=== PATIENT | male | born 1945 | race Caucasian/White ===

== ENCOUNTER 2017-03-22 09:56 | Outpatient (CLI) | payer OTHER ==
--- NOTE | 2017-03-22 12:52 | CT ---
CT CHEST WITH IV CONTRAST CT ABDOMEN WITH IV CONTRAST: Date: 03/22/17 HISTORY: Lung cancer. Patient on chemotherapy. COMPARISON: 02/12/17. FINDINGS: Bilateral supraclavicular lymphadenopathy is seen. The right hilar/suprahilar mass extending into th e right paratracheal mediastinum measures 6.6 x 4.6 x 12.3 cm. Other mediastinal lymph nodes show in terval increase in size with the subcarinal lymph nodes measuring about 16.0 mm. There has been inte rval increase in size of the pericardial effusion. A moderate sized right pleural effusion is presen t, increased in size since the last exam. The tiny peripheral nodule in the left upper lobe is stabl e. No new parenchymal nodules are seen. Numerous lesions are again noted in the liver with interval increase in size, largest lesion measuri ng about 2.9 cm. The spleen, pancreas, adrenal glands, and kidneys are unremarkable. No calcified ga llstones are noted. No free air or free fluid is seen in the abdomen. There has been interval develo pment of periportal lymphadenopathy with the portocaval lymph node measuring 18.0 mm. There are new prominent aortocaval lymph nodes measuring about 9.0 mm. The right pericardiac lymphadenopathy measures 3.5 cm and is enlarged. There are degenerative changes in the spine. No osteolytic or osteoblastic lesions are noted. IMPRESSION: Interval worsening since 02/12/17. POS: [facility]
[2017-03-22] MEDS ORDERED: Iopamidol 370 76% 100 ML VIAL ONE (16:00)
== END 2017-03-22 09:57 | disposition home or self-care (01) ==
LOC: CT 09:56
PROVIDERS: ATTEND Internal Medicine Medical Oncology
DX: C34.90 Malignant neoplasm of unspecified part of unspecified bronchus or lung (principal); C78.7 Secondary malignant neoplasm of liver and intrahepatic bile duct; C77.9 Secondary and unspecified malignant neoplasm of lymph node, unspecified
CPT/HCPCS: 71260; 74160

== ENCOUNTER → 2017-03-25 | Day surgery (SDC) | payer OTHER ==
[2017-03-25 12:55] LABS: BF Reference Range Comment Note:
[2017-03-25 13:34] LABS: BF Color Red; RBC Count-Automated 36000 /cumm
[2017-03-25 14:03] LABS: Number Cells Counted-Fluids 100
--- NOTE | 2017-03-25 17:14 | RAD ---
RADIOGRAPH CHEST 1 VIEW: Date: 03/25/2017 Time: 12:51 p.m. HISTORY: A 71-year-old male with right lung cancer. Status post thoracentesis. COMPARISON: There are no prior plain chest radiographs for comparison. There is a recent chest CT of 03/22/2017 . FINDINGS: The large volume of the right pleural effusion is only appreciated on the axial CT images and is muc h more difficult to appreciate on the athletic scout scanogram image for that CT, in which the pleural effusi on appears much smaller. Compared to that athletic scout image, the blunting of the right lateral costophren ic angle has now mildly decreased on the current study. No pneumothorax is visualized. Again noted is the right hilar and right paramediastinal, moderately large malignant neoplastic tumor mass. Ag ain demonstrated is the subsegmental atelectasis in the anterior segment of the right upper lobe, ab utting portions of the right major and minor fissures. No cardiomegaly. No pulmonary edema. Mild ai r space density has developed at the right medial lung base. IMPRESSION: 1. No pneumothorax. 2. Interval decrease in volume of right pleural effusion. 3. Right parahilar and paramediastinal lung cancer tumor mass. MARIAM [] POS: [facility]
--- NOTE | 2017-03-25 20:49 | OP ---
DATE OF SERVICE: 03/25/2017 INDICATIONS: Mr. Ball was referred by Dr. Winn with pleural effusion. He was symptomatically s hort of breath. CT was reviewed, which showed a large right pleural effusion. PROCEDURE IN DETAIL: After informed consent, the right posterior thorax was cleaned with chlorhexid ine. Lidocaine 1% was infiltrated in the right ninth intercostal space and the pleural cavity was e ntered, and about 20 mL of sanguinous fluid were removed. Thereafter, using an 8-Slovak catheter, a total of 1500 mL was removed without any difficulty. Pleural effusion sent for various studies inc luding cytology and culture. The patient tolerated the procedure well.
--- NOTE | 2017-03-25 20:52 | HP ---
HISTORY OF PRESENT ILLNESS: A 71-year-old gentleman with a history of small cell cancer being follo wed by Dr. Winn. CT showed multiple mets with liver involvement. He additionally has left arm phlebitis. Right pleural effusion seen on recent CT. He is having symptoms of cough and shortness of breath. He is denying any chest pain. PAST MEDICAL HISTORY: Outlined before pertinent for his asthma and high cholesterol. PREVIOUS SURGERIES: Knee, neck, and back surgery. SOCIAL AND FAMILY HISTORY: He is a former smoker. REVIEW OF SYSTEMS: Otherwise unremarkable. HOME MEDICATIONS: Include nose spray, vitamin, ibuprofen, several different nasal sprays. ALLERGIES: None. REVIEW OF SYSTEMS: Negative. PHYSICAL EXAMINATION: GENERAL: He appears to be in no acute distress. VITAL SIGNS: Sats are 98%, blood pressure 120/80, respirations 18, pulse 80. CHEST: Chest revealed decreased breath sounds in the right lower one-third, left lung unremarkable. CARDIAC: Normal S1 and S2. Regular. ABDOMEN: Soft. No masses. IMPRESSION: Metastatic pleural effusion, symptomatic in a former smoker. PLAN: Thoracentesis is performed. Further recommendations as above.
[2017-03-27 16:15] LABS: Fungus Smear Status Final report (.)
--- NOTE | 2017-03-30 00:54 | CON ---
DATE OF CONSULTATION: 03/29/2017 Janina Ball is a 71-year-old gentleman who is well known to me, underwent a thoracentesis on Saturday, 4 days ago for dyspnea about 1400 mL to 1500 mL of fluid was removed, which showed small cell cancer . He came back last night with marked orthopnea, PND, and shortness of breath. X-ray shows recurrence of his significant right pleural effusion. In addition, he has extensive met astatic small cell cancer. PAST MEDICAL HISTORY: Asthma, high cholesterol, small cell cancer. he takes Xarelto for what sound s like cardiac issues. PREVIOUS SURGERIES: Orthopedic surgery, back, neck and knee thoracentesis. MEDICINE FROM HOME: Amlodipine 10, Xarelto, vitamin, ibuprofen. REVIEW OF SYSTEMS: Negative. PHYSICAL EXAMINATION: VITAL SIGNS: Blood pressure is 140/70, on 2 liters, temperature is 98. CHEST: Decreased breath sounds in the right lung; the left lung is unremarkable. CARDIAC: Normal S1, S2. No gallops. ABDOMEN: Soft. No masses. LABORATORY DATA: His electrolytes are normal. His CBC is unremarkable. BNP is normal. IMPRESSION: 1. Recurrent metastatic small cell cancer with significant dyspnea. 2. Long-term Xarelto. 3. Former smoker. PLAN: Rapid fluid. I have discussed with CV Surgery. Dr. Villa is going to try to insert a pleural catheter to relieve his dyspnea. Further recommendations after above. In the meantime, we will hold his Xarelto.
--- OUTSIDE RECORDS SUMMARY | 2017-04-01 04:44 | XMS | Clinical Summary ---
:1945 Author Organization [facility] Address [address] [place] [phone] Phone Care Team Providers Name Role Phone , Primary Care Provider Unavailable Allergies Not on File Current Medications Not on file Active Problems Not on file Social History Tobacco Use Types Packs/Day Years Used Date Never Assessed Sex Assigned at Date Recorded Not on file Last Filed Vital Signs Not on file Plan of Treatment Not on file Results Not on filefrom Last 3 Months
== END ==
LOC: SDC 11:32
PROVIDERS: ATTEND Internal Medicine Pulmonary Disease
PROC: 0W993ZZ Drainage of Right Pleural Cavity, Percutaneous Approach (ICD-10-PCS; principal; 2017-03-25)
DX: C34.91 Malignant neoplasm of unspecified part of right bronchus or lung (principal); J90 Pleural effusion, not elsewhere classified; J45.909 Unspecified asthma, uncomplicated; E78.00 Pure hypercholesterolemia, unspecified; Z79.1 Long term (current) use of non-steroidal anti-inflammatories (NSAID); Z79.899 Other long term (current) drug therapy; Z87.891 Personal history of nicotine dependence
CPT/HCPCS: 32554; 71010; 80053; 82150; 82248; 82945; 83615; 83986; 84100; 84157; 84478; 84550; 85060; 87070; 87116; 87205; 87206; 88112; 88305; 88341; 88342; 89051; J1642

== ENCOUNTER 2017-03-28 16:16 | Inpatient (IN) | payer MEDICARE, OTHER ==
--- NOTE | 2017-03-28 17:16 | RAD ---
SINGLE VIEW OF THE CHEST: COMPARISON: 03/25/17. HISTORY: Dyspnea. FINDINGS: A single view of the chest shows a normal-size cardiomediastinal silhouette. There is a moderate ri ght pleural effusion. No left pleural effusion is seen. Degenerative changes are seen in the spine . IMPRESSION: Moderate right pleural effusion. POS: [facility]
[2017-03-28 17:44] LABS: Lactic Acid - Sepsis 2.6 mmol/L (0.5-2.2)
[2017-03-28 17:54] LABS: Troponin I 0.016 ng/mL (< 0.028)
[2017-03-28 18:06] LABS: #Eosinphils 0.1 thou/uL (0.0-0.7); #Lymphocytes 1.1 thou/uL (1.20-3.40); #Monocytes 1.1 thou/uL (0.11-0.59); %Basophils 0.2 % (0.0-1.0); %Eosinophils 0.7 % (0.0-10.0); %Lymphocytes 9.2 % (21.0-51.0); %Monocytes 8.7 % (0.0-10.0); Hematocrit 31.9 % (42.0-52.0); Mean Platelet Volume 7.1 fL (7.4-10.4); Red Blood Cell (RBC) Count 2.83 mill/uL (4.70-6.10); White Blood Cell (WBC) Count 12.3 thou/uL (4.8-10.8)
[2017-03-28 18:20] LABS: Anisocytosis SLIGHT = 6-15 cells (100X) (0-5/hpf); Macrocytosis MODERATE=16-30 cells (100X) (0-5/hpf); Ovalocytes SLIGHT = 2-5 cells (100X) (0-1/hpf); Polychromasia MODERATE = 3-4 cells (100X) (0-2/hpf); Schistocytes SLIGHT = 2-5 cells (100X) (0-1/hpf)
[2017-03-28 18:29] LABS: Bilirubin Small (Negative); Blood, Urine Negative (Negative); Glucose, Urine (Dipstick) Negative (Negative); Ketone, Urine Negative (Negative); Nitrite Negative (Negative); Protein, Urine (Dipstick) Trace mg/dL (Neg-Trace)
[2017-03-28 18:51] LABS: Calcium 10.7 mg/dL (7.8-10.44); Chloride 103 mmol/L (98-107); Magnesium 1.5 mg/dL (1.6-2.6)
[2017-03-28 18:52] LABS: Globulin 3.4 g/dL (2.4-3.5); Protein, Total 6.9 g/dL (5.8-8.1)
[2017-03-28 18:54] LABS: Anion Gap 12 mmol/L (10-20); Bilirubin, Total 0.4 mg/dL (0.2-1.2); Carbon Dioxide 27 mmol/L (23-31)
[2017-03-28 18:55] LABS: Alkaline Phosphatase 155 U/L (40-150)
[2017-03-28 18:56] LABS: BUN (Urea Nitrogen) 15 mg/dL (8.4-25.7); Calc. Creatinine Clearance 0 mL/min (70-130); Estimated GFR-MDRD 84
[2017-03-28 18:57] LABS: AST (SGOT) 93 U/L (5-34)
[2017-03-28 18:58] LABS: ALT (SGPT) 88 U/L (8-55)
[2017-03-28] MEDS ORDERED: Acetaminophen 325 MG TAB PO PRN ×2 (22:30→22:42)
[2017-03-28] MEDS ORDERED: Furosemide 20 MG/2 ML VIAL SLOW IVP SCH (22:42)
[2017-03-28] MEDS ORDERED: Ondansetron ODT 4 MG TAB PO PRN (22:42)
[2017-03-28] MEDS ORDERED: Potassium Chloride 20 MEQ TAB PO SCH (22:45)
[2017-03-28 23:48] VITALS: BMI 29.4
[2017-03-29] MEDS: Guaifenesin DM 100-10/5 ML UDCUP PO PRN ×5 (00:08→19:55)
[2017-03-29] MEDS ORDERED: guaiFENesin/Dextromethorphan 10 ML UDCUP PO PRN (03:29)
[2017-03-29 04:34] LABS: #Eosinphils 0.1 thou/uL (0.0-0.7); #Lymphocytes 1.1 thou/uL (1.20-3.40); #Monocytes 1.2 thou/uL (0.11-0.59); #Neutrophils 9.7 thou/uL (1.40-6.50); %Basophils 0.1 % (0.0-1.0); %Eosinophils 0.5 % (0.0-10.0); %Lymphocytes 9.1 % (21.0-51.0); %Monocytes 9.7 % (0.0-10.0); Hematocrit 30.3 % (42.0-52.0); Mean Platelet Volume 6.4 fL (7.4-10.4)
[2017-03-29 05:01] LABS: Calcium 9.9 mg/dL (7.8-10.44); Chloride 106 mmol/L (98-107)
[2017-03-29 05:23] LABS: BUN (Urea Nitrogen) 13 mg/dL (8.4-25.7); Calc. Creatinine Clearance 116 mL/min (70-130); Carbon Dioxide 17 mmol/L (23-31); Estimated GFR-MDRD Greater than 90
[2017-03-29 05:26] LABS: Anion Gap 17 mmol/L (10-20)
--- NOTE | 2017-03-29 06:09 | PDOC.FM ---
- Subjective Subjective: Mr. Ball states he does not feel too great this morning, but he says he thinks its due to him not eating much yesterday or last night. He still has dyspnea when he is moving or talking but is otherwise feeling fine. He denies chest pain, fever, chills, n/v/d. - Objective MAR Reviewed: Yes Vital Signs & Weight: Vital Signs (12 hours) Temp Pulse Resp BP BP Pulse Ox 03/29/17 04:24 98.6 F 96 20 120/69 98 03/29/17 00:53 98.9 F 97 24 H 145/69 H 99 03/28/17 22:25 98.9 F 97 24 H 144/69 H 99 Weight Weight 93 kg Result Diagrams: 03/29/17 03:49 03/29/17 03:49 Radiology Reviewed by me: Yes <Abhilash Billingsley - Last Filed: 03/29/17 08:55> - Objective Vital Signs & Weight: Vital Signs (12 hours) Temp Pulse Resp BP BP Pulse Ox 03/29/17 09:04 95 03/29/17 08:00 98.4 F 97 18 03/29/17 07:26 98.4 F 97 18 148/70 H 92 L 03/29/17 04:24 98.6 F 96 20 120/69 98 03/29/17 00:53 98.9 F 97 24 H 145/69 H 99 Weight Weight 205 lb 0.478 oz Result Diagrams: 03/29/17 03:49 03/29/17 03:49 <Azar Quick - Last Filed: 03/29/17 11:07> Phys Exam - Physical Examination Constitutional: NAD HEENT: moist MMs, sclera anicteric Neck: supple, full ROM Respiratory: no rales, no rhonchi decreased breath sounds on the right Cardiovascular: RRR, no significant murmur, no rub Gastrointestinal: soft, non-tender Musculoskeletal: no edema Neurological: non-focal, moves all 4 limbs Psychiatric: normal affect, A&O x 3 <Abhilash Billingsley - Last Filed: 03/29/17 08:55> Dx/Plan (1) Pleural effusion, right Code(s): J90 - PLEURAL EFFUSION, NOT ELSEWHERE CLASSIFIED Status: Acute Plan: Thoracentensis on 03/[address] Palma -will consult Pulmonology and heme/onc today. -effusion 2/2 small cell lung cancer -pain control, 02 supplementation (2) Small cell lung cancer Code(s): C34.90 - MALIGNANT NEOPLASM OF UNSP PART OF UNSP BRONCHUS OR LUNG Status: Acute Plan: Consult heme/onc -request records (3) Hypertension Code(s): I10 - ESSENTIAL (PRIMARY) HYPERTENSION Status: Acute Plan: Continue home meds and monitoring BPs ranging from 120-145/69 (4) Leukocytosis Code(s): D72.829 - ELEVATED WHITE BLOOD CELL COUNT, UNSPECIFIED Status: Acute Plan: continue to trend CBCs -blood cultures pending (5) Transaminitis Code(s): R74.0 - NONSPEC ELEV OF LEVELS OF TRANSAMNS & LACTIC ACID DEHYDRGNSE Status: Acute Plan: 2/2 to metastasis to liver -continue to follow (6) Macrocytic anemia Code(s): D53.9 - NUTRITIONAL ANEMIA, UNSPECIFIED Status: Acute Plan: checking RBC folate and B12 <Abhilash Billingsley - Last Filed: 03/29/17 08:55> Attending Addendum - Attending Addendum I personally evaluated the patient and discussed the management with Dr. Billingsley I agree with the History, Examination, Assessment and Plan documented above with any addition or exceptions noted below. Difficult situation. Stage IV lung cancer with recurrent pleural effusion and Dyspnea. We are asking pulmonary to see him. He may need a drain. I think he might do better on Morphine which will help with the dyspnea. <Azar Quick - Last Filed: 03/29/17 11:07>
--- NOTE | 2017-03-29 07:03 | HP-2 ---
CODE STATUS: FULL. PRIMARY CARE PHYSICIAN: [facility] call. ATTENDING: Dacia Infante MD PGY-1: Dr. Michel Solis. SPECIALIST: Chapis Winn MD, Oncology. CHIEF COMPLAINT: Shortness of breath. 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 He states he has been coughing more and working harder to breathe just like before his thoracentesis pr eviously. He states he has some chest wall pain from coughing. The symptoms get better when he kohler s not talk and when he lies down. He states he gets worse when he tries to do too much. PAST MEDICAL HISTORY: Significant for hypertension; small cell lung cancer diagnosed in October 2016, s tage IV. PAST SURGICAL HISTORY: He has had a neck surgery, a back surgery, and a knee surgery. ALLERGIES: No known drug allergies. MEDICATIONS: Xarelto and antihypertensive that he did not know the name of. FAMILY HISTORY: Noncontributory. SOCIAL HISTORY: He still is currently using chewing tobacco and he states that he has a 20-pack-yea r smoking history, but he quit in October of this year. He denies any alcohol or drug use. REVIEW OF SYSTEMS: General: He denies any fevers or chills, denies any weight changes. He fluctua charly between 205 pounds and 210 pounds. Denies any night sweats. He does admit to some fatigue. Ey es: Denies any vision change or eye pain. ENT: Denies any nasal congestion, rhinorrhea or sore th roat. Respiratory: He admits to cough. No congestion. He does admit to shortness of breath. Car diovascular: He denies any chest pain, palpitations, edema or orthopnea. Gastrointestinal: He kohler s admit to nausea. He denies vomiting, diarrhea, constipation, abdominal pain, GI bleeding. Genito urinary: He denies incontinence or dysuria. Skin: He does admit to a lesion on the sole of his ri ght foot. Denies any rashes or jaundice. Musculoskeletal: He denies any pain, tenderness, stiffne ss, swelling to any joints. Neurologic: He does admit to weakness and also numbness in his right h and from a previous shoulder injury. Psychiatric: He denies anxiety or depression. PHYSICAL EXAMINATION: VITAL SIGNS: Blood pressure was 148/63, pulse was 106, respiratory rate 30, temperature max was 98. 3, pulse ox 100% on 2 L. He was also as low as 96% on room air. His current weight is 93 kilos. GENERAL: He is alert and oriented x4. He is appropriately interactive. EYES: PERRLA. Conjunctivae within normal limits. ENT: Nasal mucosa and oropharynx within normal limits. NECK: Supple, without lymphadenopathy, without thyromegaly. CARDIOVASCULAR: Regular rate and rhythm. No murmur, no gallops. Radial and pedal pulses were equa l bilaterally. RESPIRATORY: He had labored breathing. No retractions. His left lung field was clear to auscultat ions. His right lung field was clear until about a third [address] down and he had absent lung luzma nds at his right lung base. SKIN: Warm and dry. He did have looked like a stage I pressure ulcer on the sole of his right foot . ABDOMEN: Soft, nontender to palpation. Bowel sounds were present x4. No mass or distention. EXTREMITIES: No clubbing, cyanosis or edema. MUSCULOSKELETAL: Structure, tone. Muscle strength and range of motion within normal limits. NEUROLOGIC: No focal neurologic deficits. Cranial nerves II-XII are grossly intact. GCS is 15. PSYCHIATRIC: Appropriate. LABORATORY DATA: He had a white blood cell count 12.3, a platelet count of 235, hemoglobin of 10.4, hematocrit 31.9, MCV was 113, percent neutrophils is 81.2. Sodium was 139, potassium 3.1, chloride 103, bicarbonate 27, BUN 15, creatinine 0.89, glucose was 118, calcium was 10.7, total protein 6.9, albumin was 3.5, total bilirubin 0.4, AST was 93, ALT was 88, alkaline phosphatase was 155. PT was 16, INR was 1.3, PTT was 34. Lactate was 2.6. Magnesium was 1.5. CK-MB was 2.9. Troponin I was 0.016. BNP was 46.3. A urinalysis did not show any evidence of infection. His EKG showed normal s inus rhythm, possible left atrial enlargement. He had Q-waves in V4, V5, and V6. His chest x-ray s howed a moderate right pleural effusion. He had a chest x-ray on 03/25/2017 after a thoracentesis t hat did not show any effusion present. ASSESSMENT AND PLAN: This is a 71-year-old male with past medical history, who presents with: 1. Right-sided pleural effusion, likely secondary to his lung cancer. We will consult pulmonary an d hematology. We are going to give him one dose of IV Lasix. We will give pain control if needed a nd O2 supplementation if needed. He will need a thoracentesis from pulmonology during that consulta tion. 2. Small cell lung cancer. We will consult his oncologist and request records. 3. Transaminitis. We will check his AST and ALT. He will likely need outpatient followup from [facility]. 4. Leukocytosis. We will check his CBC and we did get blood cultures. 5. Hypertension. Continue his home meds. 6. Hypercalcemia, likely secondary to his small cell lung cancer. 7. Macrocytic anemia. Will get an RBC, folate and B12, but it likely is from his tobacco abuse. 8. Disposition and length of hospital stay will be inpatient and 2 midnights. Symptomatic medicati ons will be provided. History and physical exam as well as management have been discussed with Dr. Infante.
[2017-03-29] MEDS: Multivitamin W/ Minerals 1 TAB PO SCH (08:16)
[2017-03-29] MEDS: Famotidine 20 MG TAB PO SCH ×2 (08:16→19:56)
[2017-03-29] MEDS: Ibuprofen 200 MG TAB PO SCH ×2 (08:16→19:56)
[2017-03-29] MEDS: Potassium Chloride 8 MEQ TAB PO SCH (08:29)
[2017-03-29] MEDS ORDERED: FLU VACC TS2017-18 (>65YR) 0.5 ML SYRINGE IM ONE (09:00)
[2017-03-29] MEDS ORDERED: Rivaroxaban 10 MG TAB PO SCH (09:00)
--- NOTE | 2017-03-29 11:04 | CON ---
DATE OF CONSULTATION: 03/29/2017 REASON FOR CONSULTATION: Lung cancer. HISTORY OF PRESENT ILLNESS: Mr. Ball is a 71-year-old gentleman who was diagnosed with small cell c arcinoma of the lung with multiple metastases including the liver in 11/2016. He had a right pleura l effusion at diagnosis. He began treatment with carboplatin and UPPER CASER-16. However, in February, he began to progress. He wanted to pursue aggressive treatment, so he was referred to [facility] mcneil recommended a second line immunotherapy with Opdivo. He is due to start next week; however[facility], he presented with shortness of breath. Dr. Palma performed a right thoracentesis. He then returned to our clinic yesterday with shortness of breath and his O2 saturation was 82% on room air. He was sent to the emergency room for treatment and admitted. Chest x-ray shows a moderate r ight pleural effusion. Dr. Palma has seen the patient and has recommended a PleurX catheter. PAST MEDICAL HISTORY: 1. Metastatic small cell lung cancer. 2. High cholesterol. 3. Asthma. PAST SURGICAL HISTORY: 1. Thoracentesis. 2. Knee surgery. 3. Neck and back surgery. ALLERGIES: No known drug allergies. HOME MEDICATIONS: 1. Morphine 30 mg immediate release 1-2 q.3h. p.r.n. 2. Zoloft 25 mg daily. FAMILY HISTORY: Noncontributory. SOCIAL HISTORY: , has 1 child. Lives alone. Former alcohol consumption. Current every da y smokeless tobacco dipping. REVIEW OF SYSTEMS: CONSTITUTIONAL: No fever, chills, night sweats. EYES: No blurred or double vision. ENT: No pain, hoarseness, sore throat, or dysphagia. CARDIOVASCULAR: No chest pain, palpitations or syncope. RESPIRATORY: Positive shortness breath, dyspnea on exertion and cough. GASTROINTESTINAL: No nausea, vomiting, diarrhea, constipation or abdominal pain. GENITOURINARY: No dysuria or hematuria. MUSCULOSKELETAL: No joint or back pain. SKIN: No rash or pruritus. NEUROLOGIC: No weakness, headache, numbness, tingling or seizure activity. PSYCHIATRIC: No anxiety or depression. PHYSICAL EXAMINATION: VITAL SIGNS: Temperature is 98.4, pulse is 97, respiratory rate 18, BP is 148/70, O2 is 95% on 2 li ters. GENERAL: Disheveled male in no acute distress. HEENT: Normocephalic, atraumatic. Pupils equal and reactive to light. NECK: Supple. CARDIOVASCULAR: Regular rate and rhythm. LUNGS: Diminished at the right base. ABDOMEN: Soft, nontender, bowel sounds are positive. EXTREMITIES: No clubbing, cyanosis or edema. SKIN: No rash. LYMPH: He has right supraclavicular lymphadenopathy. NEUROLOGICAL: Nonfocal. PSYCHIATRIC: The patient is alert and oriented and appropriate. PERTINENT LABORATORY AND X-RAYS: Current WBCs are 12, hemoglobin 9.8, hematocrit 10.3, platelet cou nt 223,000, 81% neutrophils, 10% lymphocytes. PT is 69, INR 1.3, PTT 34. Sodium 135, potassium 3.6 , chloride 106, CO2 17, BUN is 13, creatinine 0.77, calcium 9.9, magnesium 1.5, total bilirubin is 0 .4, AST is 93, ALT 8, alkaline phosphatase is 155. Serum total protein is 6.9, albumin 3.5, globuli n 3.4. Urine was negative for bacteria. Radiology per HPI. IMPRESSION: 1. Metastatic small cell lung cancer. 2. Moderate pleural effusion. DISCUSSION: Cardiothoracic Surgery has been consulted for a PleurX catheter placement. The patient had recent progression on CT scan and is due to start immunotherapy next week. He adamantly declin es hospice and wishes to proceed forward with aggressive treatment. He does agree to palliative car e at home and will have upper caser work on setting that up. We were attempting to get home O2 for him earlier this week. We will hopefully get that settled while he is here so he can go home and h ave that in place. Thank you for the consult. We will follow him closely.
--- NOTE | 2017-03-29 11:31 | CON ---
DATE OF CONSULTATION: 03/29/2017 REASON FOR CONSULTATION: Evaluation for right PleurX catheter placement. PERTINENT HISTORY: The patient is a 71-year-old male with widely metastatic right small cell lung cancer. Four days ago he underwent right thoracentesis for a malignant pleural effusion retrieving 1500 mL of fluid. He was admitted last evening with shortness of breath. Chest x-ray revealed a moderate recurrence of the right pleural effusion. He was subsequently referred for PleurX catheter placement. PAST MEDICAL HISTORY: 1. Hypertension. 2. Dyslipidemia. 3. Left upper extremity phlebitis for which he has been placed on Xarelto. PAST SURGICAL HISTORY: Operations performed on his back, neck, and left knee. ALLERGIES: None. SOCIAL HISTORY: Former smoker, having quit in October of this year. Currently uses chewing tobacco. FAMILY HISTORY: Noncontributory. REVIEW OF SYSTEMS: No history of diabetes, kidney or liver disease, heart disease, or stroke. LABORATORY AND X-RAY FINDINGS: Hemoglobin 9.8. Platelet count 223,000. INR 1.3. Creatinine 0.77. CURRENT MEDICATIONS: Motrin, multivitamin, potassium, and Xarelto 20 mg daily, which was given this morning at 9:00 a.m. PHYSICAL EXAMINATION: WEIGHT: 205 pounds. VITAL SIGNS: Blood pressure 148/70, heart rate 97, temperature 98.4. GENERAL: Well-developed, well-nourished male who appears in no acute distress. He is on 2 liter supplemental oxygen. He is fully oriented. HEENT: Grossly unremarkable. NECK: Without JVD. LUNGS: With slightly diminished breath sounds on the right compared to the left. HEART: Regular rate and rhythm without murmur or rub. ABDOMEN: Soft and nontender. EXTREMITIES: Without edema. VASCULAR: Palpable radial, femoral, and ankle pulses bilaterally. NEUROLOGIC: No focal deficits. IMPRESSION: Recurrent malignant right pleural effusion. RECOMMENDATIONS: Right PleurX catheter placement to which the patient is in agreement following discussion with his referring division sergeant and myself. The indications, benefits, alternatives, and risks were explained in detail to the patient. All questions were answered. The patient agrees to proceed without reservations. Will hold the Xarelto and plan catheter placement on this admission. RUSTY
[2017-03-29] MEDS: Benzonatate 100 MG CAP PO PRN ×2 (11:51→16:22)
[2017-03-29] MEDS: Methyl Salicylate/Menthol 85 GM TUBE TOP PRN (16:22)
[2017-03-29] MEDS ORDERED: Loratadine 10 MG TAB PO PRN (18:19)
[2017-03-29] MEDS: Melatonin 3 MG TAB PO PRN (23:28)
[2017-03-30] MEDS: Benzonatate 100 MG CAP PO PRN ×2 (01:42→12:27)
[2017-03-30] MEDS: Guaifenesin DM 100-10/5 ML UDCUP PO PRN ×3 (03:59→20:04)
[2017-03-30 04:38] LABS: #Eosinphils 0.1 thou/uL (0.0-0.7); #Lymphocytes 1.2 thou/uL (1.20-3.40); #Monocytes 1.1 thou/uL (0.11-0.59); #Neutrophils 7.2 thou/uL (1.40-6.50); %Basophils 0.3 % (0.0-1.0); %Eosinophils 0.9 % (0.0-10.0); %Lymphocytes 12.2 % (21.0-51.0); Hematocrit 29.7 % (42.0-52.0); Mean Platelet Volume 6.3 fL (7.4-10.4); Red Blood Cell (RBC) Count 2.65 mill/uL (4.70-6.10); White Blood Cell (WBC) Count 9.6 thou/uL (4.8-10.8)
[2017-03-30 05:03] LABS: Anion Gap 12 mmol/L (10-20); BUN (Urea Nitrogen) 17 mg/dL (8.4-25.7); Calc. Creatinine Clearance 117 mL/min (70-130); Calcium 9.8 mg/dL (7.8-10.44); Carbon Dioxide 25 mmol/L (23-31); Chloride 105 mmol/L (98-107); Estimated GFR-MDRD Greater than 90
--- NOTE | 2017-03-30 06:15 | PDOC.FM ---
- Subjective Subjective: Mr. Ball states that he is pretty tired, did not sleep well last night. He is still coughing frequently which is chronic for him. He denies any chest pain, fever, chills, n/v/d. - Objective MAR Reviewed: Yes Vital Signs & Weight: Vital Signs (12 hours) Temp Pulse Resp Pulse Ox 03/29/17 20:13 98.3 F 96 22 H 98 03/29/17 20:00 97.6 F 95 16 Weight Weight 93 kg I&O: 03/28/17 03/29/17 03/30/17 06:59 06:59 06:59 Intake Total 1000 Balance 1000 Result Diagrams: 03/30/17 03:47 03/30/17 03:47 Radiology Reviewed by me: Yes <Abhilash Billingsley - Last Filed: 03/30/17 07:30> - Objective Vital Signs & Weight: Vital Signs (12 hours) Temp Pulse Resp BP BP Pulse Ox 03/30/17 09:15 90 127/75 03/30/17 08:20 97.6 F 89 16 127/75 97 Weight Weight 205 lb 0.478 oz I&O: 03/29/17 03/30/17 03/31/17 06:59 06:59 06:59 Intake Total 1000 Balance 1000 Result Diagrams: 03/30/17 03:47 03/30/17 03:47 <Azar Quick - Last Filed: 03/30/17 10:43> Phys Exam - Physical Examination Constitutional: NAD HEENT: moist MMs, sclera anicteric Neck: no JVD, supple, full ROM Respiratory: no wheezing, no rales, no rhonchi, clear to auscultation bilateral decreased breath sounds on the right Cardiovascular: RRR, no significant murmur, no rub Gastrointestinal: soft, non-tender, no distention Musculoskeletal: no edema, pulses present Neurological: non-focal, moves all 4 limbs Psychiatric: normal affect, A&O x 3 <Abhilash Billingsley - Last Filed: 03/30/17 07:30> Dx/Plan (1) Pleural effusion, right Code(s): J90 - PLEURAL EFFUSION, NOT ELSEWHERE CLASSIFIED Status: Acute Plan: Thoracentensis on 03/[address] Minerva ZapataPullizzette and heme/onc have been consulted and have seen patient -effusion 2/2 small cell lung cancer -pain control, 02 supplementation -CV surg consulted -CXR this morning and poss PleurX cath placement today (2) Small cell lung cancer Code(s): C34.90 - MALIGNANT NEOPLASM OF UNSP PART OF UNSP BRONCHUS OR LUNG Status: Acute Plan: Consult heme/onc, appreciate recs -request records (3) Hypertension Code(s): I10 - ESSENTIAL (PRIMARY) HYPERTENSION Status: Acute Plan: Continue home meds and monitoring BPs BP well controlled today, 125/76 (4) Leukocytosis Code(s): D72.829 - ELEVATED WHITE BLOOD CELL COUNT, UNSPECIFIED Status: Acute Plan: continue to trend CBCs -blood cultures pending -WBC count has downtrended to 9.6 today (5) Transaminitis Code(s): R74.0 - NONSPEC ELEV OF LEVELS OF TRANSAMNS & LACTIC ACID DEHYDRGNSE Status: Acute Plan: 2/2 to metastasis to liver -continue to follow (6) Macrocytic anemia Code(s): D53.9 - NUTRITIONAL ANEMIA, UNSPECIFIED Status: Acute Plan: checking RBC folate and B12 B12 is not low <Abhilash Billingsley - Last Filed: 03/30/17 07:30> Attending Addendum - Attending Addendum I personally evaluated the patient and discussed the management with Dr. Billingsley I agree with the History, Examination, Assessment and Plan documented above with any addition or exceptions noted below. Mr. Ball is having issues with sleep, anxiety, back pain, and shortness of breath. I think all of these are related to his Stage IV lung cancer. He is resistant to taking pain meds or anxiolytics, but I think he would benefit from both. We will try some ibuprofen and flexeril. If that does not work, we will try Tylenol #3. We will also start some Ativan. He is due to get pulmonary catheter today. <Azar Quick - Last Filed: 03/30/17 10:43>
[2017-03-30] MEDS: Multivitamin W/ Minerals 1 TAB PO SCH (09:14)
[2017-03-30] MEDS: Potassium Chloride 8 MEQ TAB PO SCH (09:14)
[2017-03-30] MEDS: Ibuprofen 200 MG TAB PO SCH ×2 (09:14→20:05)
[2017-03-30] MEDS: Famotidine 20 MG TAB PO SCH ×2 (09:15→20:05)
[2017-03-30] MEDS: Amlodipine 10 MG TAB PO SCH (09:15)
--- NOTE | 2017-03-30 10:55 | RAD ---
CHEST 2 VIEWS: HISTORY: Effusion. COMPARISON: Chest 1 view 03/28/17. FINDINGS: Layering right pleural effusion is similar with volume loss. There is volume loss in the right uppe r lobe. Left lung is clear. There is a right paratracheal mass. IMPRESSION: Similar appearance to the chest. Right paratracheal mass with volume loss right upper lobe, post ob structing pneumonitis, and layering effusion. POS: [facility]
[2017-03-30] MEDS: Methyl Salicylate/Menthol 85 GM TUBE TOP PRN (12:27)
[2017-03-30] MEDS ORDERED: Loratadine 10 MG TAB PO PRN (13:52)
--- NOTE | 2017-03-30 15:05 | PRG ---
DATE OF SERVICE: 03/30/2017 SUBJECTIVE: Lizzy remains short of breath. At rest, appears comfortable. PHYSICAL EXAMINATION: VITAL SIGNS: 97% on 2 liters, blood pressure 120/75, respirations 18, pulse 80. CHEST: Reveals decreased breath sounds in the right lung. Left lung unremarkable. CARDIAC: Normal S1 and S2. No gallops. ABDOMEN: Soft. No masses. LABORATORY DATA: White count 9.6, hemoglobin and hematocrit 9 and 29. Electrolytes are normal. IMAGES: X-ray was taken again today, which shows significant right-sided pleural effusion. IMPRESSION: Recurrent pleural effusion, metastatic cancer. PLAN: Surgery inserted a pleural cath, hopefully will be discharged day after.
--- NOTE | 2017-03-30 21:18 | PRG ---
DATE OF SERVICE: 03/30/2017 SUBJECTIVE: This patient has a small cell carcinoma of lung with multiple metastases including to l iver, mediastinal lymph nodes and supraclavicular lymph nodes. He has failed first-line chemotherap y with carboplatin and CHEMISTRY DEPARTMENT CHAIR-16. He has cough and shortness of breath. Some of these symptoms are fro m pleural effusion on the right side. However, he has a large mediastinal mass pressing on his airw ays that could be potentially causing his cough. OBJECTIVE: VITAL SIGNS: He is afebrile. CHEST: Dullness at the right base. ABDOMEN: Soft. Bowel sounds normal. DISCUSSION: I have been having ongoing discussion regarding his poor prognosis for the past several weeks. The patient is aware that his life expectancy is limited and chemotherapy generally does no t work very well in the second-line setting. I have been trying to get approval from his insurance company, which is [facility], and [employer]. The drugs were denied by his insurance company on Saturday. We will try again on Saturday. If the insurance company does not approve this regimen, he c an still take second-line chemotherapy with topotecan or Taxol. None of treatment really worked holly y well for his small cell lung cancer, recurrent disease. The patient has agreed to go with palliat mariela care. DNR has been explained a number of times him. Right now, he does not want to be DNR. He also does not want to be on hospice at this time. His home situation also is suboptimal, as he elise es by himself and has a whole bunch of animals that he takes care of. Today, he was saying that he is trying to get together and possibly re- his ex-. Not sure how all that going to work ou t.
[2017-03-30] MEDS ORDERED: traMADol HCl 50 MG TAB PO PRN (22:15)
[2017-03-30] MEDS: Cyclobenzaprine 10 MG TAB PO PRN (22:24)
[2017-03-30] MEDS: Melatonin 3 MG TAB PO PRN (23:51)
[2017-03-30] MEDS: diphenhydrAMINE 25 MG CAP PO PRN (23:54)
[2017-03-31] MEDS ORDERED: Simethicone Chewable 80 MG TAB PO PRN (01:13)
[2017-03-31] MEDS ORDERED: traZODone HCl 50 MG TAB PO PRN (02:10)
[2017-03-31 05:26] LABS: #Eosinphils 0.1 thou/uL (0.0-0.7); #Lymphocytes 1.3 thou/uL (1.20-3.40); #Neutrophils 7.3 thou/uL (1.40-6.50); %Basophils 0.2 % (0.0-1.0); %Eosinophils 0.9 % (0.0-10.0); %Lymphocytes 13.4 % (21.0-51.0); %Monocytes 10.4 % (0.0-10.0); Hematocrit 30.4 % (42.0-52.0); Mean Platelet Volume 6.1 fL (7.4-10.4); Red Blood Cell (RBC) Count 2.74 mill/uL (4.70-6.10); White Blood Cell (WBC) Count 9.7 thou/uL (4.8-10.8)
[2017-03-31 05:39] LABS: Anion Gap 13 mmol/L (10-20); BUN (Urea Nitrogen) 22 mg/dL (8.4-25.7); Calc. Creatinine Clearance 110 mL/min (70-130); Calcium 10.2 mg/dL (7.8-10.44); Carbon Dioxide 26 mmol/L (23-31); Chloride 103 mmol/L (98-107); Estimated GFR-MDRD Greater than 90
--- NOTE | 2017-03-31 06:37 | PDOC.FM ---
- Subjective Subjective: Patient still complains of difficulty sleeping at night and he still has his cough. He denies any other complaints or concerns. He understands that we are waiting for the Catheter to arrive to facility before the procedure can be performed. He states the flexeril helped him with his back. - Objective MAR Reviewed: Yes Vital Signs & Weight: Vital Signs (12 hours) Temp Pulse Resp BP Pulse Ox 03/30/17 20:00 98.8 F 102 H 18 120/59 L 93 L 03/30/17 19:43 98.8 F 102 H 18 94 L Weight Weight 93 kg I&O: 03/29/17 03/30/17 03/31/17 06:59 06:59 06:59 Intake Total 1000 1989 Output Total 0 Balance 1000 1989 Result Diagrams: 03/31/17 04:48 03/31/17 04:48 Radiology Reviewed by me: Yes <Abhilash Billingsley - Last Filed: 03/31/17 07:55> - Objective Vital Signs & Weight: Vital Signs (12 hours) Temp Pulse Resp BP BP Pulse Ox 03/31/17 08:44 95 137/72 03/31/17 08:00 98.0 F 95 24 H 94 L 03/31/17 07:00 98.0 F 90 18 137/72 94 L Weight Weight 205 lb 0.478 oz I&O: 03/30/17 03/31/17 04/01/17 06:59 06:59 06:59 Intake Total 1000 1989 Output Total 0 Balance 1000 1989 Result Diagrams: 03/31/17 04:48 03/31/17 04:48 <Azar Quick - Last Filed: 03/31/17 10:06> Phys Exam - Physical Examination Constitutional: NAD HEENT: moist MMs, sclera anicteric Neck: no JVD, supple, full ROM mild expiratory rhonchi and decrease BS on the right Cardiovascular: RRR, no significant murmur, no rub Gastrointestinal: soft, non-tender, no distention Musculoskeletal: no edema, pulses present Neurological: non-focal, moves all 4 limbs Psychiatric: normal affect, A&O x 3 <Abhilash Billingsley - Last Filed: 03/31/17 07:55> Dx/Plan (1) Pleural effusion, right Code(s): J90 - PLEURAL EFFUSION, NOT ELSEWHERE CLASSIFIED Status: Acute Plan: Thoracentensis on 03/[address] Palma -Pulm and heme/onc have been consulted and have seen patient -effusion 2/2 small cell lung cancer -pain control, 02 supplementation -CV surg consulted, plan is to place pleurX catheter today or tomorrow (2) Small cell lung cancer Code(s): C34.90 - MALIGNANT NEOPLASM OF UNSP PART OF UNSP BRONCHUS OR LUNG Status: Chronic Plan: Consult heme/onc, appreciate recs -Dr. Winn has seen patient -patient refuses hospice at this time -patient has agreed to palliative care (3) Hypertension Code(s): I10 - ESSENTIAL (PRIMARY) HYPERTENSION Status: Chronic Plan: Continue home meds and monitoring BPs BP well controlled today, 120/59 (4) Leukocytosis Code(s): D72.829 - ELEVATED WHITE BLOOD CELL COUNT, UNSPECIFIED Status: Resolved Plan: continue to trend CBCs -blood cultures pending -WBC count has stabilized at 9.7 (5) Transaminitis Code(s): R74.0 - NONSPEC ELEV OF LEVELS OF TRANSAMNS & LACTIC ACID DEHYDRGNSE Status: Chronic Plan: 2/2 to metastasis to liver -continue to follow outpatient (6) Macrocytic anemia Code(s): D53.9 - NUTRITIONAL ANEMIA, UNSPECIFIED Status: Chronic Plan: checking RBC folate and B12 B12 is not low <Abhilash Billingsley - Last Filed: 03/31/17 07:55> Attending Addendum - Attending Addendum I personally evaluated the patient and discussed the management with Dr. Billingsley I agree with the History, Examination, Assessment and Plan documented above. <Azar Quick - Last Filed: 03/31/17 10:06>
[2017-03-31] MEDS: Guaifenesin DM 100-10/5 ML UDCUP PO PRN ×4 (07:25→21:38)
[2017-03-31] MEDS: Ibuprofen 200 MG TAB PO SCH ×2 (08:42→21:32)
[2017-03-31] MEDS: Famotidine 20 MG TAB PO SCH ×2 (08:43→21:32)
[2017-03-31] MEDS: Multivitamin W/ Minerals 1 TAB PO SCH (08:43)
[2017-03-31] MEDS: Amlodipine 10 MG TAB PO SCH (08:44)
[2017-03-31] MEDS: Cyclobenzaprine 10 MG TAB PO PRN ×2 (08:45→14:25)
[2017-03-31] MEDS: Potassium Chloride 8 MEQ TAB PO SCH (08:51)
[2017-03-31] MEDS: Benzonatate 100 MG CAP PO PRN ×2 (08:51→14:27)
[2017-03-31] MEDS: diphenhydrAMINE 25 MG CAP PO PRN (12:01)
--- NOTE | 2017-03-31 14:08 | PRG ---
DATE OF SERVICE: 03/31/2017 SUBJECTIVE: No new complaints. Still dyspnea. PHYSICAL EXAMINATION: VITAL SIGNS: Sats are 96% on 2 liters, respiratory 24, blood pressure 130/77, respirations 18. CHEST: Decreased breath sounds in right lung. Left lung is unremarkable. CARDIAC: Normal S1 and S2. No gallops. ABDOMEN: Soft. No masses. LABORATORY DATA: White count 9.7, H\T\H 9 and 30, platelet count is normal. Electrolytes are tayla l. IMPRESSION: Right pleural effusion, recurrent and metastatic cancer. PLAN: Hopefully, we can proceed with the pleural catheter tomorrow. Disposition thereafter.
[2017-03-31] MEDS ORDERED: Polyethylene Glycol 3350 17 GM Packet PO PRN (14:50)
[2017-03-31] MEDS ORDERED: Lorazepam 0.5 MG TAB PO SCH (21:30)
[2017-04-01 04:48] LABS: #Eosinphils 0.1 thou/uL (0.0-0.7); #Lymphocytes 1.4 thou/uL (1.20-3.40); #Monocytes 1.1 thou/uL (0.11-0.59); #Neutrophils 7.8 thou/uL (1.40-6.50); %Basophils 0.4 % (0.0-1.0); %Eosinophils 1.1 % (0.0-10.0); %Lymphocytes 13.5 % (21.0-51.0); %Monocytes 10.8 % (0.0-10.0); Hematocrit 31.5 % (42.0-52.0); Mean Platelet Volume 6.3 fL (7.4-10.4); Red Blood Cell (RBC) Count 2.84 mill/uL (4.70-6.10); White Blood Cell (WBC) Count 10.4 thou/uL (4.8-10.8)
[2017-04-01 05:06] LABS: Anion Gap 11 mmol/L (10-20); BUN (Urea Nitrogen) 18 mg/dL (8.4-25.7); Calc. Creatinine Clearance 110 mL/min (70-130); Calcium 10.4 mg/dL (7.8-10.44); Carbon Dioxide 27 mmol/L (23-31); Chloride 102 mmol/L (98-107); Estimated GFR-MDRD Greater than 90
[2017-04-01] MEDS ORDERED: CEFAZOLIN/Water 2 GM/20 ML SYRINGE ONE (06:30)
[2017-04-01] MEDS ORDERED: Fentanyl 100 MCG/2 ML VIAL ONE ×2 (07:08→09:16)
[2017-04-01] MEDS ORDERED: Midazolam HCl 2 mg/2 ml Vial ONE ×2 (07:08→09:16)
[2017-04-01] MEDS ORDERED: CEFAZOLIN 2 GM in Sodium Chloride 0.9% 100 ML IVPB SCH (07:30)
[2017-04-01] MEDS ORDERED: CEFAZOLIN/Water 2 GM/20 ML SYRINGE SLOW IVP SCH (07:30)
--- NOTE | 2017-04-01 08:28 | PDOC.FM ---
- Subjective Subjective: Patient slept much better last night with the ativan. The patient reports that his breathing is about the same, still having the cough. Denies CP. No other complaints. - Objective MAR Reviewed: Yes Vital Signs & Weight: Vital Signs (12 hours) Temp Pulse Resp BP Pulse Ox 04/01/17 05:36 97.7 F 109 H 18 121/71 98 Weight Weight 93 kg I&O: 03/31/17 04/01/17 04/02/17 06:59 06:59 06:59 Intake Total 1989 490 Output Total 0 Balance 1989 490 Result Diagrams: 04/01/17 03:53 04/01/17 03:53 <Liset Chan - Last Filed: 04/01/17 08:11> - Objective Vital Signs & Weight: Vital Signs (12 hours) Temp Pulse Resp BP Pulse Ox 04/02/17 08:00 97.8 F 101 H 24 H 137/79 90 L Weight Weight 93 kg I&O: 04/01/17 04/02/17 04/03/17 06:59 06:59 06:59 Intake Total 490 Balance 490 Result Diagrams: 04/02/17 03:51 04/02/17 03:51 <Dacia Infante - Last Filed: 04/02/17 11:05> Phys Exam - Physical Examination Constitutional: NAD HEENT: moist MMs decreased breath sounds on the right Cardiovascular: RRR, no significant murmur Musculoskeletal: no edema Neurological: non-focal, moves all 4 limbs Psychiatric: normal affect, A&O x 3 Skin: no rash <Liset Chan - Last Filed: 04/01/17 08:11> Dx/Plan (1) Pleural effusion, right Code(s): J90 - PLEURAL EFFUSION, NOT ELSEWHERE CLASSIFIED Status: Acute Plan: Pleural effusion 2/2 stage 4 small cell lung ca s/p thoracentesis on 03/[address] Palma -Pulm has been consulted, appreciate recs -Heme/onc has been consulted, appreciate recs -CV surg has been consulted, appreciate recs, plan for PleurX catheter today -O2 prn (2) Small cell lung cancer Code(s): C34.90 - MALIGNANT NEOPLASM OF UNSP PART OF UNSP BRONCHUS OR LUNG Status: Chronic Qualifiers: Laterality: unspecified laterality Qualified Code(s): C34.90 - Malignant neoplasm of unspecified part of unspecified bronchus or lung Plan: Patient has stage 4 small cell lung cancer -Heme/Onc on board, appreciate recs -Patient refused hospice -Patient would like palliative care, this is being set up by case management (3) Hypertension Code(s): I10 - ESSENTIAL (PRIMARY) HYPERTENSION Status: Chronic Qualifiers: Hypertension type: essential hypertension Qualified Code(s): I10 - Essential (primary) hypertension Plan: Continue home meds (4) Macrocytic anemia Code(s): D53.9 - NUTRITIONAL ANEMIA, UNSPECIFIED Status: Chronic Plan: Macrocytic anemia B12 is not low, checking RBC folate (5) Transaminitis Code(s): R74.0 - NONSPEC ELEV OF LEVELS OF TRANSAMNS & LACTIC ACID DEHYDRGNSE Status: Chronic Plan: 2/2 liver mets -will continue to follow outpatient <Liset Chan - Last Filed: 04/01/17 08:11> Attending Addendum - Attending Addendum I personally evaluated the patient and discussed the management with Dr. Chan I agree with the History, Examination, Assessment and Plan documented above with any addition or exceptions noted below. Late entry. Patient seen and examined on 04/01/17. Patient post op day #0. Doing well. Pain controlled but complains of worsening of chronic back pain. Reports breathing is somewhat improved after cath placement. Will monitor overnight and patient will likely be d/c'ed in AM. Jennie <Dacia Infante - Last Filed: 04/02/17 11:05>
[2017-04-01] MEDS ORDERED: Propofol 200 MG/20 ML VIAL ONE (10:16)
[2017-04-01] MEDS ORDERED: Ketorolac Tromethamine 30 MG/ML VIAL IVP PRN (10:56)
[2017-04-01] MEDS ORDERED: Ondansetron HCl/PF 4 MG/2 ML Vial IVP PRN (10:56)
[2017-04-01] MEDS ORDERED: Promethazine HCl 25 MG/ML VIAL IM PRN (10:56)
[2017-04-01] MEDS ORDERED: Promethazine HCl 25 MG/ML VIAL SLOW IVP PRN (10:56)
[2017-04-01] MEDS ORDERED: Ketorolac Tromethamine 30 MG/ML VIAL ONE (10:57)
--- NOTE | 2017-04-01 11:18 | OP ---
DATE OF PROCEDURE: 04/01/2017 PREOPERATIVE DIAGNOSIS: Recurrent malignant right pleural effusion. SURGEON: Trace Villa M.D. CARBON CLEANER: None. POSTOPERATIVE DIAGNOSIS: Recurrent malignant right pleural effusion. SPONGE, NEEDLE COUNTS: Correct. ANESTHESIA: Intravenous sedation and local. PROCEDURE PERFORMED: Right PleurX catheter placement. FINDINGS AT OPERATION: Two liters of rust colored pleural fluid. DESCRIPTION OF PROCEDURE: The patient was taken to the operating room. Intravenous sedation was achieved. The patient was prepped and draped in the usual sterile fashion. Over the lateral right seventh rib local anesthesia was achieved with 1% Xylocaine. Approximately 5-6 cm caudad on the lateral chest wall local anesthesia for the catheter exit site was achieved with 1% Xylocaine. Subcutaneous tissues connecting the two sites were infiltrated with 1 % Xylocaine. At the upper site the pleural space was accessed with the needle and catheter with confirmation of entry into the pleural effusion. Needle was removed. Guidewire was passed with removal of the catheter. The opening here was slightly enlarged with the scalpel. A 5mm incision was made at the proposed catheter exit site. The PleurX catheter was tunneled between the 2 incisions. Initial dilator was passed over the guidewire. This was followed by the dilator/peel-away sheath complex. Second dilator was removed. Catheter was threaded through the peel-away sheath. Peel-away sheath was removed. The pleural effusion was then drained retrieving the above volume of fluid. The catheter was secured at the exit site with a horizontal mattress 0 silk suture. At the upper site the subcutaneous tissues were closed with a 3-0 Vicryl suture followed by Dermabond. PleurX catheter dressing was placed. The patient was subsequently taken to the recovery room. Blood loss none. MTDD
[2017-04-01] MEDS: Amlodipine 10 MG TAB PO SCH (11:40)
[2017-04-01] MEDS: Potassium Chloride 8 MEQ TAB PO SCH (11:40)
[2017-04-01] MEDS: Famotidine 20 MG TAB PO SCH ×2 (11:40→21:13)
[2017-04-01] MEDS: Ibuprofen 200 MG TAB PO SCH ×2 (11:40→21:13)
[2017-04-01] MEDS: Multivitamin W/ Minerals 1 TAB PO SCH (11:40)
[2017-04-01] MEDS: traMADol HCl 50 MG TAB PO PRN (14:17)
[2017-04-01] MEDS: Cyclobenzaprine 10 MG TAB PO PRN (14:56)
--- NOTE | 2017-04-01 15:00 | RAD ---
PORTABLE CHEST: HISTORY: Catheter placement. COMPARISON: 03/28/2017 FINDINGS: There is a faintly visualized catheter placed along the right lung base. The right-sided effusion a ppears reduced, as compared to the prior exam. The post obstructive changes of the right upper lobe and right hilar mass density are stable. There appears to be some slight increasing parenchymal ch marv in the left base, which could represent atelectasis or infiltrate. IMPRESSION: Placement of a right-sided chest tube line along the right hemidiaphragm with reduction in the right pleural effusion. POS: [facility]
[2017-04-01 17:12] LABS: Folate,Hemolysate 358.6 ng/mL (Not Estab.); Hematocrit 27.3 % (37.5-51.0); RBC Folate Test Component 1314 ng/mL (>498)
[2017-04-01] MEDS: diphenhydrAMINE 25 MG CAP PO PRN (17:41)
[2017-04-01] MEDS ORDERED: Lorazepam 0.5 MG TAB PO PRN (18:43)
[2017-04-02 05:08] LABS: #Eosinphils 0.1 thou/uL (0.0-0.7); #Lymphocytes 1.3 thou/uL (1.20-3.40); #Monocytes 1.2 thou/uL (0.11-0.59); #Neutrophils 8.2 thou/uL (1.40-6.50); %Basophils 0.3 % (0.0-1.0); %Lymphocytes 11.8 % (21.0-51.0); %Monocytes 11.3 % (0.0-10.0); Hematocrit 31.1 % (42.0-52.0); Mean Platelet Volume 6.5 fL (7.4-10.4); Red Blood Cell (RBC) Count 2.85 mill/uL (4.70-6.10); White Blood Cell (WBC) Count 10.9 thou/uL (4.8-10.8)
[2017-04-02 05:21] LABS: Anion Gap 12 mmol/L (10-20); BUN (Urea Nitrogen) 22 mg/dL (8.4-25.7); Calc. Creatinine Clearance 106 mL/min (70-130); Calcium 10.7 mg/dL (7.8-10.44); Carbon Dioxide 28 mmol/L (23-31); Chloride 102 mmol/L (98-107); Estimated GFR-MDRD 90
--- NOTE | 2017-04-02 07:48 | PDOC.FM ---
- Subjective Subjective: Mr. Ball is POD#1 s/p PleurX catheter placement on the R side on 04/01. He is doing well this AM. He still has a persistent cough. He slept well overnight, did not require the ativan to sleep. He was able to breathe okay. He does not have much of an appetite and is feeling constipated since getting to the hospital. Denies fever, chills, CP, SOB. - Objective MAR Reviewed: Yes Vital Signs & Weight: Vital Signs (12 hours) Temp Pulse Resp BP Pulse Ox 04/01/17 20:00 97.9 F 90 18 107/64 91 L Weight Weight 93 kg I&O: 04/01/17 04/02/17 04/03/17 06:59 06:59 06:59 Intake Total 490 Balance 490 Result Diagrams: 04/02/17 03:51 04/02/17 03:51 <Liset Chan - Last Filed: 04/02/17 07:46> - Objective Vital Signs & Weight: Vital Signs (12 hours) Temp Pulse Resp BP Pulse Ox 04/02/17 12:34 92 L 04/02/17 11:51 93 L 04/02/17 08:00 97.8 F 101 H 24 H 137/79 90 L Weight Weight 93 kg I&O: 04/01/17 04/02/17 04/03/17 06:59 06:59 06:59 Intake Total 490 Balance 490 Result Diagrams: 04/02/17 03:51 04/02/17 03:51 <Josefina Choudhury - Last Filed: 04/02/17 15:56> Phys Exam - Physical Examination Constitutional: NAD HEENT: moist MMs Respiratory: no wheezing, no rales, no rhonchi decreased breath sounds in R lung base Cardiovascular: RRR, no significant murmur Gastrointestinal: soft, non-tender, no distention Musculoskeletal: no edema, pulses present Neurological: non-focal, moves all 4 limbs Psychiatric: normal affect, A&O x 3 Skin: no rash <Liset Chan - Last Filed: 04/02/17 07:46> Dx/Plan (1) Pleural effusion, right Code(s): J90 - PLEURAL EFFUSION, NOT ELSEWHERE CLASSIFIED Status: Acute Plan: Pleural effusion 2/2 stage 4 small cell lung ca s/p thoracentesis on 03/[address] Palma POD#1 s/p PleurX catheter placement on R -Pulm has been consulted, appreciate recs -Heme/onc has been consulted, appreciate recs -CV surg has been consulted, appreciate recs -O2 prn -Pain control (2) Small cell lung cancer Code(s): C34.90 - MALIGNANT NEOPLASM OF UNSP PART OF UNSP BRONCHUS OR LUNG Status: Chronic Qualifiers: Laterality: unspecified laterality Qualified Code(s): C34.90 - Malignant neoplasm of unspecified part of unspecified bronchus or lung Plan: Patient has stage 4 small cell lung cancer -Heme/Onc on board, appreciate recs -Patient refused hospice -Patient would like palliative care, this is being set up by case management -Pain control (3) Hypertension Code(s): I10 - ESSENTIAL (PRIMARY) HYPERTENSION Status: Chronic Qualifiers: Hypertension type: essential hypertension Qualified Code(s): I10 - Essential (primary) hypertension Plan: Continue home meds (4) Macrocytic anemia Code(s): D53.9 - NUTRITIONAL ANEMIA, UNSPECIFIED Status: Chronic Plan: Macrocytic anemia B12 is not low RBC folate WNL (5) Transaminitis Code(s): R74.0 - NONSPEC ELEV OF LEVELS OF TRANSAMNS & LACTIC ACID DEHYDRGNSE Status: Chronic Plan: 2/2 liver mets -will continue to follow outpatient (6) Constipation Code(s): K59.00 - CONSTIPATION, UNSPECIFIED Status: Acute Qualifiers: Constipation type: unspecified constipation type Qualified Code(s): K59.00 - Constipation, unspecified Plan: The patient is having constipation -Will give stool softener and laxative -Will monitor - Plan Plan: Likely d/c today pending specialists recs <Liset Chan - Last Filed: 04/02/17 07:46> Attending Addendum - Attending Addendum I personally evaluated the patient and discussed the management with Dr. Chan. I agree with the History, Examination, Assessment and Plan documented above with any addition or exceptions noted below. The patient tolerated yesterday's procedure. He is ready to go home and has been cleared by his specialists. <Josefina Choudhury - Last Filed: 04/02/17 15:56>
[2017-04-02] MEDS: Potassium Chloride 8 MEQ TAB PO SCH (08:13)
[2017-04-02] MEDS: Ibuprofen 200 MG TAB PO SCH (08:14)
[2017-04-02] MEDS: traMADol HCl 50 MG TAB PO PRN (08:14)
[2017-04-02] MEDS: Multivitamin W/ Minerals 1 TAB PO SCH (08:15)
[2017-04-02] MEDS: Famotidine 20 MG TAB PO SCH (08:15)
[2017-04-02] MEDS: Amlodipine 10 MG TAB PO SCH (08:15)
[2017-04-02] MEDS ORDERED: Senokot S 8.6-50 MG TAB PO SCH (09:00)
--- NOTE | 2017-04-02 09:31 | PRG ---
DATE OF SERVICE: 04/02/2017 This morning he is awake, alert, responsive. He is coughing with less short of breath. PHYSICAL EXAMINATION: VITAL SIGNS: His sats are 938%, respirations 18, temperature 97. CHEST: Chest reveals decreased breath sounds, no wheezing. CARDIAC: Normal S1, S2. His white count is 10,000, H\T\H is 10 and 31. Platelet count 255,000. IMPRESSION: Metastatic small cell, status post pleural catheter. DISPOSITION: Home anytime. Follow up with Oncology.
[2017-04-02 09:57] VITALS: BP 137/79; TEMP 97.8
--- OUTSIDE RECORDS SUMMARY | 2017-04-02 21:41 | XMS | Clinical Summary ---
:1945 Author Organization [facility] Address [address] [place] [phone] Phone Care Team Providers Name Role Phone [...]
--- NOTE | 2017-04-03 13:54 | DIS-2 ---
DATE OF ADMISSION: 03/28/2017 DATE OF DISCHARGE: 04/02/2017 ADMITTING RESIDENT: Michel Solis M.D. DISCHARGE RESIDENT: Liset Chan M.D. ADMITTING ATTENDING: Dr. Dacia Infante DISCHARGE ATTENDING: Dr. Josefina Choudhury CONSULTATIONS 1. Dr. Palma with Pulmonology. 2. Sri Vitale with Oncology. 3. Dr. Villa with Cardiovascular Surgery. PROCEDURES: Right PleurX catheter placement. PRIMARY DIAGNOSES: 1. Right pleural effusion. 2. Stage IV small cell lung cancer. 3. Transaminitis. 4. Constipation. 5. Leukocytosis. 6. Hypercalcemia. SECONDARY DIAGNOSES: 1. Macrocytic anemia. 2. Hypertension. DISCHARGE MEDICATIONS: 1. Amlodipine 10 mg p.o. daily. 2. Tessalon Perles 100 mg p.o. q.4 hours. 3. Cyclobenzaprine 5 mg p.o. t.i.d. 4. Pepcid 20 mg p.o. b.i.d. 5. Ibuprofen 200 mg 3 capsules p.o. b.i.d. 6. Melatonin 3 mg p.o. at bedtime p.r.n. insomnia. 7. Multivitamin 1 tablet p.o. daily. 8. MiraLax 17 grams p.o. daily p.r.n. 9. Potassium 99 mg p.o. daily. 10. Xarelto 20 mg p.o. daily. 11. Senokot-S 1 tab p.o. b.i.d. 12. Benadryl 25 mg p.o. q.4h. 13. Robitussin-DM 15 mL p.o. p.r.n. cough. 14. Tramadol 50 mg p.o. q.i.d. p.r.n. pain. DISCONTINUED MEDICATIONS: None. HISTORY OF PRESENT ILLNESS/HOSPITAL COURSE: This is a 71-year-old male with past medical history of stage IV small cell lung cancer who presented on 2016 with shortness of breath and cough after having had a thoracentesis done on 03/25/[address] Palma for a pleural effusion on the right side secondary to his small cell lung cancer. The patient had a chest x-ray done that showed moderate right-sided pleural effusion. The patient also had elevated white count of 12.3 with 81.2% neutrophils. The patient had just received a thoracentesis and the pleural effusion had filled that quickly, it was recommended that he receive a PleurX catheter that can be frequently drained. This recommendation was made by Dr. Palma who consulted Dr. Villa. The catheter did not arrive until 04/01/2017. The patient received the surgery on 04/01/2017 which had no complications. The patient reported less shortness of breath after this, but still had the same cough. The patient had a palliative care consulted as the patient declined hospice and palliative care was set up for the patient. DISPOSITION: Guarded. DISCHARGE INSTRUCTIONS: 1. Location: Home. 2. Diet: Regular. 3. Activity: As tolerated. 4. Followup: Follow up with Sri Klein on 04/08/2017 at 9:00 a.m., Dr. Arteaga, primary care physician within 7 days. RUSTY
== END 2017-04-02 15:25 | disposition home health service (06) | DRG 181 ==
LOC: ERS 16:16 → T4-A 21:00
PROVIDERS: ADMIT Student in an Organized Health Care Education/Training Program; ATTEND Student in an Organized Health Care Education/Training Program
PROC: 0W9930Z Drainage of Right Pleural Cavity with Drainage Device, Percutaneous Approach (ICD-10-PCS; principal; 2017-04-01)
DX: C34.90 Malignant neoplasm of unspecified part of unspecified bronchus or lung (principal); J91.0 Malignant pleural effusion; C78.7 Secondary malignant neoplasm of liver and intrahepatic bile duct; C79.51 Secondary malignant neoplasm of bone; C77.8 Secondary and unspecified malignant neoplasm of lymph nodes of multiple regions; E83.52 Hypercalcemia; L89.891 Pressure ulcer of other site, stage 1; I10 Essential (primary) hypertension; F17.220 Nicotine dependence, chewing tobacco, uncomplicated; D63.0 Anemia in neoplastic disease; Z92.21 Personal history of antineoplastic chemotherapy; Z51.5 Encounter for palliative care; K59.00 Constipation, unspecified; E78.5 Hyperlipidemia, unspecified; Z79.01 Long term (current) use of anticoagulants; F41.9 Anxiety disorder, unspecified
CPT/HCPCS: 32554; 36415; 36416; 71010; 71020; 80048; 80053; 81003; 82150; 82248; 82553; 82607; 82747; 82945; 83605; 83615; 83735; 83880; 83986; 84100; 84157; 84478; 84484; 84550; 85025; 85060; 85610; 85730; 87040; 87070; 87116; 87205; 87206; 88112; 88305; 88341; 88342; 89051; 93005; C1729; J1642; J1885; J1940; J2250; J2704; J3010

== ENCOUNTER 2017-04-08 17:09 | Inpatient (IN) | payer MEDICARE, OTHER ==
[2017-04-08 17:51] LABS: Bilirubin Small (Negative); Blood, Urine Negative (Negative); Glucose, Urine (Dipstick) Negative (Negative); Ketone, Urine Negative (Negative); Nitrite Positive (Negative); Protein, Urine (Dipstick) Negative (Neg-Trace)
[2017-04-08 17:55] LABS: Bacteria/HPF None Seen HPF (None Seen); RBC/HPF 0-3 HPF (0-3); Squamous Epithelial 0-3 HPF (0-3)
[2017-04-08 18:04] LABS: Hyaline Casts/LPF 0-3 HYALINE CAST LPF (0-3 Hyaline); Yeast-All Forms None Seen HPF (None Seen)
[2017-04-08 18:17] LABS: Hematocrit 37.4 % (42.0-52.0); Mean Platelet Volume 7.6 fL (7.4-10.4); Red Blood Cell (RBC) Count 3.42 mill/uL (4.70-6.10); White Blood Cell (WBC) Count 33.2 thou/uL (4.8-10.8)
--- OUTSIDE RECORDS SUMMARY | 2017-04-08 18:21 | XMS | Clinical Summary ---
:1945 Author Organization [facility] Address [address] [place] [phone] Phone Care Team Providers Name Role Phone [...]
--- NOTE | 2017-04-08 18:25 | RAD ---
AP VIEW OF CHEST: Date: 04/08/17 INDICATION: History of cancer, on Hospice therapy, with dyspnea. COMPARISON: Prior exam dated 04/01/17. FINDINGS: There is worsening volume loss within the right upper lobe. There is enlarging right pleural effusio n with increasing right basilar opacity suspicious for atelectasis. Left lung remains clear. No acut e osseous abnormality is evident. IMPRESSION: 1. Worsening volume loss within the right upper lobe. 2. Enlarging right pleural effusion with right basilar opacity most suspicious for changes of atele ctasis and/or pneumonia. Continued follow-up is recommended. POS: J[facility]
[2017-04-08 18:27] LABS: Lactic Acid - Sepsis 3.8 mmol/L (0.5-2.2)
[2017-04-08] MEDS ORDERED: cefTRIAXone\\ROCEPHIN 2 GM, Admixture Fee 1 EACH in Sodium Chloride 0.9% 100 ML IVPB SCH (18:30)
[2017-04-08 18:34] LABS: Anisocytosis SLIGHT = 6-15 cells (100X) (0-5/hpf); Band 4 % (5-11); Hypochromia SLIGHT = 6-15 cells (100X) (0-5/hpf); Macrocytosis SLIGHT = 6-15 cells (100X) (0-5/hpf); Metamyelocyte 2 % (0-0); Neutrophil 85 % (42-75); Polychromasia SLIGHT = 2-3 cells (100X) (0-2/hpf); Reactive Lymphocytes 1 % (0-10)
[2017-04-08] MEDS ORDERED: Vancomycin HCl 1 GM in Premix Bag 1 BAG IVPB SCH (19:00)
[2017-04-08] MEDS ORDERED: Piperacillin/Tazobactam 4.5 GM, Admixture Fee 1 EACH in Sodium Chloride 0.9% 100 ML IVPB SCH (19:00)
[2017-04-08] MEDS ORDERED: Vancomycin HCl 1.25 GM in Sodium Chloride 0.9% 250 ML 250 ML IVPB SCH (19:00)
[2017-04-08 19:06] LABS: Chloride 100 mmol/L (98-107)
[2017-04-08 19:07] LABS: Globulin 3.4 g/dL (2.4-3.5); Protein, Total 6.2 g/dL (5.8-8.1)
[2017-04-08 19:08] LABS: Anion Gap 15 mmol/L (10-20); Carbon Dioxide 25 mmol/L (23-31)
[2017-04-08 19:09] LABS: Bilirubin, Total 2.7 mg/dL (0.2-1.2)
[2017-04-08 19:10] LABS: Alkaline Phosphatase 287 U/L (40-150); Calc. Creatinine Clearance 0 mL/min (70-130); Calcium 13.4 mg/dL (7.8-10.44); Estimated GFR-MDRD 25
[2017-04-08 19:11] LABS: BUN (Urea Nitrogen) 66 mg/dL (8.4-25.7)
[2017-04-08 19:12] LABS: AST (SGOT) 266 U/L (5-34)
[2017-04-08 19:13] LABS: ALT (SGPT) 201 U/L (8-55)
[2017-04-08 22:54] VITALS: BMI 25.7
[2017-04-08] MEDS ORDERED: Ondansetron HCl/PF 4 MG/2 ML Vial IVP PRN ×2 (22:59→23:01)
[2017-04-08] MEDS ORDERED: Ondansetron ODT 4 MG TAB PO PRN (22:59)
[2017-04-08] MEDS ORDERED: Acetaminophen 650 MG Suppository PR PRN (22:59)
[2017-04-08] MEDS ORDERED: Bisacodyl 5 MG TAB PO PRN (22:59)
[2017-04-08] MEDS ORDERED: Acetaminophen 325 MG TAB PO PRN ×2 (22:59→23:01)
[2017-04-08] MEDS ORDERED: Bisacodyl 10 MG SUPP PR PRN (22:59)
[2017-04-08] MEDS ORDERED: Ondansetron ODT 4 MG TAB SL PRN (23:01)
[2017-04-08] MEDS ORDERED: Benzonatate 100 MG CAP PO PRN (23:15)
[2017-04-08] MEDS ORDERED: traMADol HCl 50 MG TAB PO PRN (23:15)
[2017-04-08] MEDS ORDERED: Melatonin 3 MG TAB PO PRN (23:15)
[2017-04-08] MEDS ORDERED: Cefepime 0.5 GM in Admixture Fee 1 EACH FS SCH (23:45)
[2017-04-09 00:19] LABS: Lactic Acid - Sepsis 1.7 mmol/L (0.5-2.2)
[2017-04-09] MEDS: Sodium Chloride 0.9% 1,000 ML IV SCH ×4 (00:25→19:26)
[2017-04-09] MEDS: diphenhydrAMINE 25 MG CAP PO PRN ×2 (00:25→23:51)
[2017-04-09] MEDS: Cefepime 0.5 GM, Admixture Fee 1 EACH in Sterile Water 10 ML SLOW IVP SCH (01:55)
[2017-04-09] MEDS ORDERED: Piperacillin/Tazobactam 2.25 GM, Admixture Fee 1 EACH in Sodium Chloride 0.9% 100 ML IVPB SCH (04:00)
[2017-04-09] MEDS ORDERED: Piperacillin/Tazobactam 3.375 GM, Admixture Fee 1 EACH in Sodium Chloride 0.9% 100 ML IVPB SCH (04:00)
[2017-04-09 05:20] LABS: ALT (SGPT) 194 U/L (8-55); AST (SGOT) 274 U/L (5-34); Alkaline Phosphatase 249 U/L (40-150); Anion Gap 18 mmol/L (10-20); BUN (Urea Nitrogen) 74 mg/dL (8.4-25.7); Calc. Creatinine Clearance 25 mL/min (70-130); Carbon Dioxide 22 mmol/L (23-31); Chloride 101 mmol/L (98-107); Estimated GFR-MDRD 19; Protein, Total 6.1 g/dL (5.8-8.1)
[2017-04-09 05:27] LABS: Calcium 13.4 mg/dL (7.8-10.44)
[2017-04-09 05:35] LABS: Band 9 % (5-11); Hematocrit 30.7 % (42.0-52.0); Macrocytosis SLIGHT = 6-15 cells (100X) (0-5/hpf); Mean Platelet Volume 6.9 fL (7.4-10.4); Metamyelocyte 1 % (0-0); Neutrophil 75 % (42-75); Nucleated RBC 3 % (0); Red Blood Cell (RBC) Count 2.75 mill/uL (4.70-6.10); White Blood Cell (WBC) Count 25.2 thou/uL (4.8-10.8)
[2017-04-09] MEDS ORDERED: Vancomycin HCl 1.25 GM in Sodium Chloride 0.9% 250 ML 250 ML IVPB SCH ×2 (06:00→18:30)
--- NOTE | 2017-04-09 07:10 | HP-2 ---
DATE OF ADMISSION: 04/08/2017 LOCATION: [facility] CODE STATUS: The patient's code status is DNR. ATTENDING PHYSICIAN: Dr. Malia Raphael RESIDENT: Harvey Jean Baptiste M.D., PGY1. HISTORIAN: The historian is the mainly the patient's son. CHIEF COMPLAINT: Weakness and decreased energy. SUBJECTIVE: This is a 71-year-old male here with shortness of breath and decreased energy . He was recently discharged from the hospital on 04/02/2017. He states that he has kind of been a t his baseline since discharge. He said he has been having a decreased appetite, eating about only one meal a day, having really bad decreased fluid intake. He is having a hard time to talk, son say s he is hard to understand. He was supposed to recently follow up with Heme/Oncologist for possibly needing a new cancer treatment. He has recently been on chemo for cancer. He was recently diagnos ed with small cell lung cancer in 10/2016, it is stage IV at this time. At his last admission at [facility], he had a PleurX catheter placed as he was having recurrent pleural effusions. Son says that they have been draining a liter about every other day. The patient has been very weak, has may be only gotten up to go to the bathroom one time, other than that has not had much energy to get up or move around at all. REVIEW OF SYSTEMS: All review of systems not listed in the HPI, otherwise negative at this time. PAST MEDICAL HISTORY: Hypertension, small cell lung cancer stage IV. PAST SURGICAL HISTORY: Neck surgery, back surgery, knee surgery. ALLERGIES: No known drug allergies. MEDICATIONS: Amlodipine 10 mg once a day, Tessalon Perles 100 mg p.o. q.4 hours p.r.n., cyclobenzap rine 5 mg t.i.d., Pepcid 20 mg p.o. b.i.d., ibuprofen 300 mg 3 b.i.d. Melatonin 3 mg p.o. p.r.n., M iraLax 17 grams as needed. Potassium 99 mg once a day, Xarelto 20 mg once a day, Senokot, Benadryl 25 mg p.r.n. and tramadol 50 mg q.i.d. FAMILY HISTORY: Noncontributory. SOCIAL HISTORY: Tobacco: He has a 24-nttb-ibre smoking history. No alcohol use and no illicit yuki g use. OBJECTIVE: VITAL SIGNS: Blood pressure is 110/65, pulse of 102, respirations 22, temperature is 98.6, pulse ox 100% on 4 liters on a nonrebreather mask. Current weight is 86 kilograms. GENERAL: He is alert. He is able to respond somewhat, does not speak that much. Seems to be prett y weakened right now at this time, it is hard for him to answer questions. He is well-developed and interacts somewhat. EYES: Conjunctivae within normal limits. ENT: Mucous membranes are dry at this time. NECK: Supple, no lymphadenopathy, no thyromegaly. HEART: Regular rhythm, but rate is tachycardic on auscultation. No murmurs, no gallops. Radial pu lses, pedal pulses palpated bilaterally. RESPIRATORY: He has normal breathing effort, no retractions. His lungs are crackly, crackly noises heard on auscultation. No wheezes, no rales. SKIN: Warm, dry. No lesions. No bruising noted. ABDOMEN: Soft, nontender to palpation. Bowel sounds heard in all 4 quadrants. No masses or disten tion. MUSCULOSKELETAL: Tone within normal limits. NEUROLOGIC: No focal neuro deficits. Sensation within normal limit. LABORATORY DATA: White blood cell count of 33.2, hemoglobin 11.6, hematocrit 37.4, MCV is 109, plat elets of 240, 4% bands, 85% neutrophils. Sodium is 135, potassium is 4.8, chloride 100, CO2 25, BUN 66, creatinine is 2.52, glucose is 89, calcium is 13.4, total protein 6.2, albumin is 2.8, alkaline phosphatase 287, AST 266, ALT 201, total bilirubin is 2.1. Lactic acid is 3.8. UA shows specific gravity 1.022, negative blood, negative protein, small leukocyte esterase, positive nitrites, negati ve ketones, negative glucose, negative red blood cells, white blood cells 4-6, and bacteria none. Chest x-ray; 1) shows worsening volume loss within the right upper lobe; 2) enlarging right pleural effusion with right basilar opacity, most suspicious for change of atelectasis and/or pneumonia. ASSESSMENT AND PLAN: 1. Severe sepsis secondary to pneumonia. We will start him on vancomycin, Zosyn and cefepime for c overage as he does have cancer and likely may be a hospital acquired component. We will put him on O2 support with a nonrebreather mask at this time and keep him above 90%. We will have RT following and keep him closely monitored. We will repeat a CBC in the a.m. Start him on fluids, normal sali ne at a rate of 150 due to elevated lactic acid and the sepsis at this time. We will admit him to [facility] floor inpatient. 2. Pleural effusions. We will continue draining as needed with his PleurX catheter, we will consul t Pulmonary in the morning who has been following him and consult palliative care. 3. Lactic acidosis. We will continue the IV fluids as we planned secondary to the plan was severe sepsis. 4. Acute kidney injury, likely due to some dehydration and hypovolemia. I will continue normal eben ine at rate of 150. 5. Transaminitis. We will get a right upper quadrant ultrasound for possible metastasis to the [facility] er and also likely could be due to hypoperfusion, which were continuing to give fluids at this time. 6. Hypercalcemia secondary to cancer and volume depletion. We will continue to follow with daily C MPs at this time and possibly will need to treat if needed, not having symptoms at this time. 7. Macrocytic anemia, chronic, likely due to cancer. We will continue to follow. 8. Hypertension. Hold his amlodipine as his blood pressure was a little low at this time. We will restart as needed. 9. Urinary tract infection. He is currently getting good coverage with the vancomycin and Zosyn, c efepime for the pneumonia at this time. 10. Deep venous thrombosis prophylaxis. We will give him Lovenox and give him a PPI for gastroesop hageal reflux disease prophylaxis.
--- NOTE | 2017-04-09 08:19 | PDOC.FM ---
- Subjective Subjective: The patient is currently on a non-rebreather and was alert and oriented. He reports difficulty breathing and cough. Denies chest pain, nausea, vomiting, abdominal pain, fever, chills. - Objective MAR Reviewed: Yes Vital Signs & Weight: Vital Signs (12 hours) Temp Pulse Resp BP Pulse Ox 04/09/17 04:05 97.5 F L 95 22 H 145/68 H 04/09/17 02:31 95 22 H 99 04/09/17 00:10 99 04/08/17 22:59 99 04/08/17 22:30 98.7 F 99 28 H 99 04/08/17 22:18 98.7 F 99 28 H 109/61 99 Weight Weight 86.183 kg I&O: 04/08/17 04/09/17 04/10/17 06:59 06:59 06:59 Intake Total 1500 Output Total 100 Balance 1400 Result Diagrams: 04/09/17 04:23 04/09/17 04:23 Phys Exam - Physical Examination increased work of breathing on non-rebreather HEENT: moist MMs crackles and decreased breath sounds on R, increased work of breathing Cardiovascular: RRR, no significant murmur, no rub, gallop Gastrointestinal: soft, non-tender, no distention, positive bowel sounds Musculoskeletal: no edema, pulses present Neurological: non-focal, moves all 4 limbs Psychiatric: normal affect Deviation from normal: cold hands and feet Dx/Plan (1) Severe sepsis Code(s): A41.9 - SEPSIS, UNSPECIFIED ORGANISM; R65.20 - SEVERE SEPSIS WITHOUT SEPTIC SHOCK Status: Acute Plan: Patient presented in severe sepsis with elevated lactic acid 2/2 Hospital Acquired Pneumonia Pt has PleurX catheter in place and a chronic R sided pleural effusion 2/2 stage 4 Small Cell Lung Cancer CXR showed R basilar opacity concerning for pneumonia and pt has elevated white count on admission of 33, has since downtrended to 25 -Vanc, Zosyn, Cefepime day 2 -NS @ 150 mL/hr -O2 prn -Trend WBC daily -Blood Cx -Drain PleurX cath q2days (2) Hospital-acquired pneumonia Code(s): J18.9 - PNEUMONIA, UNSPECIFIED ORGANISM Status: Acute Plan: Pt has hospital acquired pneumonia, was recently hospitalized from 03/28-04/02 and had pleurX catheter placed. -Vanc, Zosyn, Cefepime day 2 -NS @ 150 mL/hr -O2 prn -Trend WBC daily -Blood Cx -Drain PleurX cath q2days (3) Acute kidney injury Code(s): N17.9 - ACUTE KIDNEY FAILURE, UNSPECIFIED Status: Acute Plan: Pt has FRANK 2/2 severe dehydration. He has not been eating or drinking as much at home for the past few days. He received a 1L bolus in the ED, there was concern with his pleural effusion for giving him too much fluids since the patient was already having difficulty breathing. Was given albumin to try to not push all the fluid into his lungs. -NS @ 150 mL/hr -Will monitor with daily BMP's (4) Lactic acid increased Code(s): E87.2 - ACIDOSIS Status: Resolved Plan: Pt had elevated lactic acid initially 2/2 severe sepsis, was trended and has now normalized. (5) Urinary tract infection Status: Acute Qualifiers: Urinary tract infection type: acute cystitis Hematuria presence: without hematuria Qualified Code(s): N30.00 - Acute cystitis without hematuria Plan: Pt has a UTI, he is not reporting any dysuria. He is currently being treated for sepsis 2/2 hospital acquired pneumonia - this will cover his UTI -Urine Cx (6) Pleural effusion, right Code(s): J90 - PLEURAL EFFUSION, NOT ELSEWHERE CLASSIFIED Status: Acute Plan: Pt has a R sided pleural effusion 2/2 stage 4 Small Cell lung cancer that has a PleurX catheter that gets drained every other day and drains about one liter of fluid. -Will continue to drain PleurX cath every other day -Pt on non-rebreather, will continue (7) Small cell lung cancer Code(s): C34.90 - MALIGNANT NEOPLASM OF UNSP PART OF UNSP BRONCHUS OR LUNG Status: Chronic Qualifiers: Laterality: unspecified laterality Qualified Code(s): C34.90 - Malignant neoplasm of unspecified part of unspecified bronchus or lung Plan: Pt has Stage IV small cell lung cancer diagnosed in October 2016. Palliative care got involved during his last hospitalization, but the patient was refusing hospice at the time. -Consult Palliative Care -Continue draining PleurX catheter -Symptom management (8) Hypercalcemia Code(s): E83.52 - HYPERCALCEMIA Status: Acute Plan: Pt has hypercalcemia likely 2/2 small cell lung cancer vs concentration from dehydration -Will fluid resuscitate and monitor (9) Leukocytosis Code(s): D72.829 - ELEVATED WHITE BLOOD CELL COUNT, UNSPECIFIED Status: Resolved Qualifiers: Leukocytosis type: unspecified Qualified Code(s): D72.829 - Elevated white blood cell count, unspecified Plan: Patient had elevated leukocytosis that is downtrending 2/2 HAP -Vanc, Zosyn, Cefepime day 2 -NS @ 150 mL/hr -Will trend (10) Transaminitis Code(s): R74.0 - NONSPEC ELEV OF LEVELS OF TRANSAMNS & LACTIC ACID DEHYDRGNSE Status: Chronic Plan: Pt has elevated transaminases, has known liver mets from small cell lung cancer. These are significantly more elevated than previously, this is likely 2/ 2 dehydration as the patient has not been eating or drinking well at home. -NS @ 150 -Will trend daily -Abdominal US (11) Macrocytic anemia Code(s): D53.9 - NUTRITIONAL ANEMIA, UNSPECIFIED Status: Chronic Plan: Patient has chronic macrocytic anemia This is stable, will monitor (12) Hypertension Code(s): I10 - ESSENTIAL (PRIMARY) HYPERTENSION Status: Chronic Qualifiers: Hypertension type: essential hypertension Qualified Code(s): I10 - Essential (primary) hypertension Plan: Patient has hypertension, is on amlodipine at home. -Hold for now as pt has had borderline low BP
[2017-04-09] MEDS ORDERED: Non-Formulary Item 1 EACH (Potassium [Potassium] 99 MG) PO SCH (09:00)
[2017-04-09] MEDS ORDERED: Amlodipine 10 MG TAB PO SCH (09:00)
[2017-04-09] MEDS ORDERED: FLU VACC TS2017-18 (>65YR) 0.5 ML SYRINGE IM ONE (09:00)
[2017-04-09] MEDS ORDERED: Rivaroxaban 10 MG TAB PO SCH (09:00)
--- NOTE | 2017-04-09 09:33 | ULT ---
RIGHT UPPER QUADRANT ULTRASOUND: Date: 04-09-17 Comparison: None. History: Elevated transaminase levels, abnormal liver function tests. Technique: Multiplanar grayscale sonographic imaging of the right upper quadrant obtained. FINDINGS: There is 2.3 x 1.5 cm hypoechoic lesion inseparable from the ventral aspect of the pancreatic head w hich appears to represent an abnormal enlarged node when compared to CT exam performed 03-22-17. The hepatic parenchyma is heterogeneous and irregular with numerous hypoechoic masses, concerning for m etastatic disease as seen on the 03-22-17 CT exam. Incompletely imaged right pleural effusion is pre sent. Right kidney measures 11.3 cm in craniocaudal dimension and demonstrates diffuse mild cortical thinning with no hydronephrosis or stone. There is nonspecific mild gallbladder wall thickening. Gallbladder wall measuring in the 4 mm range. Cholelithiasis is noted as well. The heliotherapist reports a negative Novak's sign. Question trace p ericholecystic fluid. The common bile duct measures 4 mm, within normal limits. IMPRESSION: 1. Heterogeneity of the hepatic parenchyma with numerous hepatic masses, suspicious for metastatic d isease. 2. Right pleural effusion. 3. Hypoechoic lesion abuts the pancreas, likely lymphadenopathy as seen on the 03-22-17 CT exam, als o concerning for metastatic disease. 4. Cholelithiasis with mild gallbladder wall thickening. However, sonographic Novak's sign is negat mariela and thus, significance is uncertain. If there is clinical concern for acute cholecystitis, hepat obiliary scan is advised. 5. If further imaging assessment of the degree of hepatic metastatic disease and/or the extend of pr esumed periportal lymphadenopathy is clinically warranted, repeat CT examination of the abdomen racheal jauregui. POS: [facility]
[2017-04-09] MEDS ORDERED: Enoxaparin Sodium 30 MG/0.3 ML SYRINGE SC SCH ×2 (09:45→10:00)
[2017-04-09] MEDS ORDERED: Calcitonin,Salmon,Synthetic 200 UNITS/ML SC SCH (11:00)
[2017-04-09] MEDS ORDERED: Zoledronic Acid 4 MG in Sodium Chloride 0.9% 100 ML IVPB SCH (11:15)
--- NOTE | 2017-04-09 11:41 | ADD-PRG ---
DATE OF SERVICE: 04/09/2017 This is an addendum to the note of Dr. Liset Chan. Mr. Ball is a very unfortunate 71-year-old white male patient with metastatic small cell carcinoma o f the lung complicated by large right pleural effusion. He was admitted with pneumonia complicating his other clinical issues. He has a DNR code status. He was started on broad spectrum antibiotics and will obtain cultures of the pleural fluid. We have also consulted his social science manager, Dr. Palma, who will see the patient as well.
[2017-04-09] MEDS: Multivitamin W/ Minerals 1 TAB PO SCH (12:41)
[2017-04-09] MEDS: Ibuprofen 600 MG TAB PO SCH ×2 (12:41→22:53)
[2017-04-09] MEDS: Famotidine 20 MG TAB PO SCH (12:41)
[2017-04-09] MEDS: Cyclobenzaprine 10 MG TAB PO SCH ×3 (12:41→22:53)
--- NOTE | 2017-04-09 20:38 | CON ---
DATE OF CONSULTATION: 04/09/2017 HISTORY OF PRESENT ILLNESS: Mr. Janina Ball is a 71-year-old gentleman with metastatic small cell cancer with recurrent pleural effusion. A week ago, he had a pleural catheter inserted and [employer] was draining the fluid every other day, a large quantity. He presented yesterday h ere with weakness, metastatic changes. He is apparently under hospice care. It is unclear whether his oncologist was notified. Hospice is seeing him right now. The patient's history is extensively outlined. PAST MEDICAL HISTORY: Asthma, cholesterol, small cell, on chronic anticoagulation. PAST SURGICAL HISTORY: Back and neck surgery, multiple thoracentesis, pleural catheter and orthoped ic surgery. MEDICINE FROM HOME: Unknown. REVIEW OF SYSTEMS: Unremarkable. PHYSICAL EXAMINATION: GENERAL: On examination, he is lethargic and arousable. VITAL SIGNS: Temperature is 97, O2 sat is 98%, respiratory rate 18, and blood pressure 110/61. CHEST: Decreased breath sounds in right lung. Left lung unremarkable. CARDIAC: Sinus tachycardia. ABDOMEN: Soft. No masses. LABORATORY DATA: White count is 25,000, hemoglobin and hematocrit are 9 and 30, platelet count 226. His BUN and creatinine are 74 and 3.2, calcium 38.4. IMPRESSION: 1. Metastatic small cell cancer. 2. Recurrent pleural effusion, status post pleural catheter. 3. Right upper atelectasis. PLAN: Prognosis is fairly grave Agree with empiric antibiotics. He is DNR. May consider sending the pleural fluid for Gram stain and culture and sensitivity. We will follow.
[2017-04-10] MEDS: Cefepime 0.5 GM, Admixture Fee 1 EACH in Sterile Water 10 ML SLOW IVP SCH (00:52)
[2017-04-10] MEDS: Sodium Chloride 0.9% 1,000 ML IV SCH ×2 (06:39→11:38)
--- NOTE | 2017-04-10 08:31 | PDOC.FM ---
- Subjective Subjective: Mr. Ball was breathing heavily on a non-rebreather at 6L O2 this AM. He was slow to respond, but was able to tell me that he was in pain and that he was thirsty. - Objective MAR Reviewed: Yes Vital Signs & Weight: Vital Signs (12 hours) Temp Pulse Resp BP Pulse Ox 04/10/17 04:00 97.5 F L 99 24 H 117/71 97 04/10/17 00:21 98 04/10/17 00:00 97 24 H 127/62 98 Weight Admit Weight 86.183 kg Weight 86.183 kg I&O: 04/09/17 04/10/17 04/11/17 06:59 06:59 06:59 Intake Total 1500 1350 Output Total 100 1000 Balance 1400 350 Result Diagrams: 04/09/17 04:23 04/09/17 04:23 Phys Exam - Physical Examination Increased work of breathing HEENT: moist MMs Respiratory: no wheezing Decreased breath sounds on R base, Rales, increased work of breathing Cardiovascular: RRR, no significant murmur, no rub, gallop Gastrointestinal: soft, non-tender, no distention, positive bowel sounds Musculoskeletal: no edema, pulses present Neurological: non-focal, moves all 4 limbs Slow mentation Psychiatric: A&O x 3 Dx/Plan (1) Severe sepsis Code(s): A41.9 - SEPSIS, UNSPECIFIED ORGANISM; R65.20 - SEVERE SEPSIS WITHOUT SEPTIC SHOCK Status: Acute Plan: Patient presented in severe sepsis with elevated lactic acid 2/2 Hospital Acquired Pneumonia Pt has PleurX catheter in place and a chronic R sided pleural effusion 2/2 stage 4 Small Cell Lung Cancer CXR showed R basilar opacity concerning for pneumonia and pt has elevated white count on admission of 33, has since downtrended to 25 -Vanc, Cefepime day 3 -Pulm has been consulted, appreciate recs -NS @ 150 mL/hr -O2 prn -Trend WBC daily -Blood Cx, Pleural fluid Cx -Drain PleurX cath q2days (2) Hospital-acquired pneumonia Code(s): J18.9 - PNEUMONIA, UNSPECIFIED ORGANISM Status: Acute Plan: Pt has hospital acquired pneumonia, was recently hospitalized from 03/28-04/02 and had pleurX catheter placed. -Vanc, Cefepime day 3 -NS @ 150 mL/hr -O2 prn -Trend WBC daily -Blood Cx, Pleural Fluid Cx -Drain PleurX cath q2days (3) Acute kidney injury Code(s): N17.9 - ACUTE KIDNEY FAILURE, UNSPECIFIED Status: Acute Plan: Pt has FRANK 2/2 severe dehydration. He has not been eating or drinking as much at home for the past few days. He received a 1L bolus in the ED, there was concern with his pleural effusion for giving him too much fluids since the patient was already having difficulty breathing. Was given albumin to try to not push all the fluid into his lungs. -NS @ 150 mL/hr -Will monitor with daily BMP's (4) Lactic acid increased Code(s): E87.2 - ACIDOSIS Status: Resolved Plan: Pt had elevated lactic acid initially 2/2 severe sepsis, was trended and has now normalized. (5) Urinary tract infection Status: Acute Qualifiers: Urinary tract infection type: acute cystitis Hematuria presence: without hematuria Qualified Code(s): N30.00 - Acute cystitis without hematuria Plan: Pt has a UTI, he is not reporting any dysuria. He is currently being treated for sepsis 2/2 hospital acquired pneumonia - this will cover his UTI -Urine Cx (6) Pleural effusion, right Code(s): J90 - PLEURAL EFFUSION, NOT ELSEWHERE CLASSIFIED Status: Acute Plan: Pt has a R sided pleural effusion 2/2 stage 4 Small Cell lung cancer that has a PleurX catheter that gets drained every other day and drains about one liter of fluid. -Will continue to drain PleurX cath every other day -Pt on non-rebreather, will continue -Dr. Palma with pulmonology has been consulted, appreciate recs (7) Small cell lung cancer Code(s): C34.90 - MALIGNANT NEOPLASM OF UNSP PART OF UNSP BRONCHUS OR LUNG Status: Chronic Qualifiers: Laterality: unspecified laterality Qualified Code(s): C34.90 - Malignant neoplasm of unspecified part of unspecified bronchus or lung Plan: Pt has Stage IV small cell lung cancer diagnosed in October 2016. Palliative care got involved during his last hospitalization, but the patient was refusing hospice at the time. Palliative care had a conversation with the patient and his son and it appears that they are both accepting of inpatient hospice. Patient did not pass his swallow eval by speech, which is likely contributing to his decline -Palliative Care on board, appreciate recs -Continue draining PleurX catheter -Symptom management -Morphine for pain (8) Hypercalcemia Code(s): E83.52 - HYPERCALCEMIA Status: Acute Plan: Pt has hypercalcemia likely 2/2 small cell lung cancer vs concentration from dehydration His calcium was initially above 14 when corrected for albumin and so he was treated with a dose of calcitonin and a bisphosponate. Repeat Calcium was 12.7, corrected was 13.4 -Will fluid resuscitate and monitor (9) Transaminitis Code(s): R74.0 - NONSPEC ELEV OF LEVELS OF TRANSAMNS & LACTIC ACID DEHYDRGNSE Status: Chronic Plan: Pt has elevated transaminases, has known liver mets from small cell lung cancer. These are significantly more elevated than previously, this is likely 2/ 2 dehydration as the patient has not been eating or drinking well at home. -NS @ 150 -Will trend daily (10) Macrocytic anemia Code(s): D53.9 - NUTRITIONAL ANEMIA, UNSPECIFIED Status: Chronic Plan: Patient has chronic macrocytic anemia This is stable, will monitor (11) Hypertension Code(s): I10 - ESSENTIAL (PRIMARY) HYPERTENSION Status: Chronic Qualifiers: Hypertension type: essential hypertension Qualified Code(s): I10 - Essential (primary) hypertension Plan: Patient has hypertension, is on amlodipine at home. -Hold for now as pt has had borderline low BP
[2017-04-10] MEDS ORDERED: Enoxaparin Sodium 30 MG/0.3 ML SYRINGE SC SCH (09:00)
[2017-04-10] MEDS: Morphine 10 MG/ML VIAL SLOW IVP PRN ×2 (09:20→13:48)
[2017-04-10] MEDS ORDERED: CEFEPIME IVPB SCH (10:00)
[2017-04-10] MEDS ORDERED: SODIUM CHLORIDE 0.9% IVPB SCH (10:00)
[2017-04-10] MEDS: Cyclobenzaprine 10 MG TAB PO SCH (10:00)
[2017-04-10] MEDS: Famotidine 20 MG TAB PO SCH (10:00)
[2017-04-10] MEDS: Ibuprofen 600 MG TAB PO SCH (10:00)
[2017-04-10] MEDS: Multivitamin W/ Minerals 1 TAB PO SCH (10:01)
[2017-04-10] MEDS ORDERED: methylPREDNISolone Sod Succ/PF 125 MG/2 ML VIAL IVP SCH (10:15)
[2017-04-10] MEDS ORDERED: STERILE WATER SLOW IVP SCH (10:30)
[2017-04-10] MEDS ORDERED: ADMIXTURE FEE SLOW IVP SCH (10:30)
[2017-04-10] MEDS ORDERED: CEFEPIME SLOW IVP SCH (10:30)
--- NOTE | 2017-04-10 10:31 | PRG ---
DATE OF SERVICE: 04/10/2017 SUBJECTIVE: Mr. Ball is very somnolent and exhibiting some degree of respiratory distress. I reall y believe his overall prognosis is extremely poor. He has received a dose of calcitonin and Zometa for his hypercalcemia, which has improved. We are in discussions with he and his family regarding i npatient hospice. We continue IV antibiotics for pneumonia and likely infection of his pleural flui d as well.
--- NOTE | 2017-04-10 10:44 | PRG ---
DATE OF SERVICE: 04/10/2017 SUBJECTIVE: Lizzy had 700 mL of fluid drained yesterday by his Pleurocath without any improvement in his pulmonary status. OBJECTIVE: VITAL SIGNS: Temperature 97, respirations 24, blood pressure 110/71. CHEST: Decreased breath sounds without any wheezing. CARDIAC: Normal S1 and S2. ABDOMEN: Soft, no masses. IMPRESSION: Metastatic small cell cancer and recurrent pleural effusion. PLAN: Comfort care. I will stop all antibiotics and transfer him to inpatient hospice.
--- NOTE | 2017-04-10 10:57 | PQF ---
CLINICAL DOCUMENTATION IMPROVEMENT CLARIFICATION FORM: ICD-10 Updated PLEASE DO AN ADDENDUM TO THE PROGRESS NOTE WITH ANY DOCUMENTATION UPDATES OR ADDITIONS AND CARRY THROUGH TO DC SUMMARY. THANK YOU. Date: 04/10/17 ATTN: DR. GARVIN / DR. MARTÍNEZ Please exercise your independent, professional judgment in responding to the clarification form. Clinical indicators are provided on the bottom of this form for your review Please check appropriate box(s): [ x] Protein Calorie Malnutrition: [ ] Mild [ ] Moderate [ ] Severe [ ] Other Malnutrition (please specify) __ [ ] Underweight without malnutrition [ ] Cachexia [ ] Other diagnosis [ ] Unable to determine In addition, please specify: Present on Admission (POA): [x] Yes [ ] No [ ] Unable to determine CLINICAL INDICATORS - SIGNS / SYMPTOMS / LABS PROGRESS NOTE 04/10: "PATIENT DID NOT PASS HIS SWALLOW EVAL BY SPEECH" DIETARY NOTE 04/09: "7% WEIGHT LOSS SINCE RECENT ADMIT 2 WEEKS AGO" ALBUMIN 2.8 BMI 25.8 RISKS: STAGE IV LUNG CANCER POOR WOUND HEALING TREATMENT: SPEECH THERAPY CONSULT FOR SWALLOW EVALUATION DIETARY CONSULT NUTRITIONAL SUPPLEMENTS (This form is maintained as a part of the permanent medical record) 2014 [employer]. All Rights Reserved [email or web address] Office: [phone] [facility] [place]
[2017-04-10 14:32] VITALS: BP 118/56; TEMP 97.3
[2017-04-11] MEDS ORDERED: Cefepime 2 GM in Sodium Chloride 0.9% 100 ML IVPB SCH (05:00)
[2017-04-11] MEDS ORDERED: Cefepime 2 GM, Syringe 2.5 ML in Sterile Water 10 ML SLOW IVP SCH (05:00)
--- NOTE | 2017-04-11 05:03 | DIS-2 ---
DATE OF ADMISSION: 04/08/2017 DATE OF DISCHARGE: 04/10/2017 ADMITTING RESIDENT: Harvey Jean Baptiste M.D. DISCHARGE RESIDENT: Liset Chan MD ADMITTING ATTENDING: Malia Raphael M.D. DISCHARGE ATTENDING: Simon Pa MD CONSULTATIONS: 1. Dr. Palma with Pulmonology 2. Palliative Care. PROCEDURES: None. IMAGIN. Chest x-ray showed worsening volume loss in the right upper lobe and enlarging right pleural effusion with right basilar opacity was suspicious for changes of atelectasis and/or pneumonia. 2. Abdomen ultrasound showed heterogeneity of the hepatic parenchyma with numerous hepatic masses suspicious for metastatic disease, right pleural effusion, hypoechoic lesion that abuts the pancreas, likely lymphadenopathy, cholelithiasis with mild gallbladder wall thickening. PRIMARY DIAGNOSES: 1. Severe sepsis secondary to Hospital-acquired pneumonia. 2. Hospital-acquired pneumonia. 3. Elevated lactic acid. 4. Severe hypercalcemia. 5. Transaminitis. 6. Acute kidney injury. 7. Leukocytosis. 8. Urinary tract infection. 9. Right pleural effusion. 10. Stage IV small cell lung cancer. 11. Protein-calorie malnutrition SECONDARY DIAGNOSES: 1. Chronic macrocytic anemia. 2. Hypertension. DISCHARGE MEDICATIONS: 1. Dexamethasone 20 mg daily. 2. Suprax 250 mg p.o. for 7 days DISCONTINUED MEDICATIONS: 1. Amlodipine 10 mg daily. 2. Tessalon Perles 100 mg p.o. q.4 hours p.r.n. 3. Cyclobenzaprine 5 mg t.i.d. 4. Pepcid 20 mg p.o. b.i.d. 5. Ibuprofen 300 mg b.i.d. 6. Melatonin 3 mg p.o. p.r.n. 7. MiraLax 17 grams as needed. 8. Potassium 99 mg once a day. 9. Xarelto 20 mg once a day. 10. Senokot. 11. Benadryl 25 mg p.r.n. 12. Tramadol 50 mg q.i.d. HISTORY OF PRESENT ILLNESS AND HOSPITAL COURSE: This is a 71-year-old male with past medical history of stage IV small cell lung cancer diagnosed earlier this year, who was recently hospitalized with a recurrent right pleural effusion and had a PleurX catheter placed. The patient presented with an elevated white count to 33.2 and a lactic acid of 3.8 and had signs of worsening of the pleural effusion and possible infection. The patient was treated initially with vancomycin, cefepime and Zosyn, later with just vancomycin and cefepime for hospital-acquired pneumonia. The patient was given fluids, but not bolused heavily with concern for the fluid going into his lungs. The patient's white count trended down to 25.2 and his lactic acid normalized to 1.7. He also during this time was having significant difficulty breathing and was requiring 6 liters on a nonrebreather. The patient per his son had not been eating or drinking much in the past several days, and the nurse noticed that he was unable to swallow very well, and so we ordered a speech evaluation, which patient did not pass, he is unable to swallow even his medications. The patient had a pretty significant acute kidney injury with a creatinine of 2.52 and then 3.29 and a GFR of 19. Patient had elevated LFTs that was significantly increased from his recent hospitalization with a total bilirubin of 3.0, AST of 274, ALT of 194, and alkaline phosphatase of 249. We suspected this was due to a combination of metastatic disease and hypoperfusion. The patient had hypercalcemia that when corrected for the albumin was 14.4, and the patient had decreased mentation, and so we treated this with calcitonin and bisphosphonate, this improved to 12.7, which corrected to 13. We suspect this will continue to improve. During his hospitalization, palliative care became involved and they had already been seeing him outpatient. In his prior hospitalization, the patient had refused hospice; however, at this time with the patient's son being involved, the patient and his son agreed for inpatient hospice, and this was approved and set up, and the patient was transferred to inpatient hospice on 04/10/2017 with a very poor prognosis, but we continued him on liquid form of antibiotics, Suprax to hopefully continue to help his pneumonia for at least some comfort during this time. The patient is severely malnourished and as he was unable to pass his speech evaluation, but was going to hospice, we allowed for him to have pleasure feeds. DISPOSITION: Guarded. DISCHARGE INSTRUCTIONS: 1. Location: Inpatient Hospice at [facility]. 2. Diet: Pleasure feeds as tolerated. 3. Activity: As tolerated. 4. Followup with a hospice doctor within 1 week. RUSTY
== END 2017-04-10 14:09 | disposition hospice, inpatient (51) | DRG 871 ==
LOC: ERS 17:09 → 2NO 19:41
PROVIDERS: ADMIT Internal Medicine Infectious Disease; ATTEND Internal Medicine Infectious Disease
DX: A41.9 Sepsis, unspecified organism (principal); J18.9 Pneumonia, unspecified organism; E43 Unspecified severe protein-calorie malnutrition; N17.9 Acute kidney failure, unspecified; J91.0 Malignant pleural effusion; E87.2 Acidosis; C34.90 Malignant neoplasm of unspecified part of unspecified bronchus or lung; E86.0 Dehydration; I10 Essential (primary) hypertension; J98.11 Atelectasis; N30.00 Acute cystitis without hematuria; R65.20 Severe sepsis without septic shock; Z79.01 Long term (current) use of anticoagulants; F17.210 Nicotine dependence, cigarettes, uncomplicated; E86.1 Hypovolemia; E83.52 Hypercalcemia; D63.0 Anemia in neoplastic disease; Z66 Do not resuscitate; Z51.5 Encounter for palliative care; Y95 Nosocomial condition; Z68.25 Body mass index [BMI] 25.0-25.9, adult; J45.909 Unspecified asthma, uncomplicated; R74.0 Nonspecific elevation of levels of transaminase and lactic acid dehydrogenase [LDH]
CPT/HCPCS: 36415; 71010; 76705; 80053; 81003; 81015; 83605; 85025; 87040; 87070; 87086; 87149; 87205; 96361; 96365; 96366; 96368; A4216; G8996-GN-CM; G8997-GN-CM; J0692; J0696; J1650; J2270; J2543; J3370; J3489; J7050; P9045